=== PATIENT | female | born 1950 | race Caucasian/White ===

== ENCOUNTER 2020-12-27 15:04 | Emergency (ER) | payer OTHER, MEDICARE ==
[~2020-12-27] VITALS: Ht 182.9 cm; Wt 181.0 kg
[~2020-12-27 15:04] MED LIST: ALDACTONE25 MG PO; AZITHROMYCIN250 MG PO; COUMADIN5 MG PO; DILTIAZEM 24HR120 M1 PO; DILTIAZEM HCL120 MG PO; ELIQUIS5 MG PO; LASIX20 MG PO; LIPITOR40 MG PO; METFORMIN HCL500 MG PO; POTASSIUM CHLO10 MEQ PO; PREDNISONE20 MG PO; PROAIR HFA8.5 GM INH; TOPROL XL50 MG PO; ZESTRIL40 MG PO
== END 2020-12-27 17:54 | disposition home or self-care (01) ==
LOC: ED 15:04
DX: M25.551 Pain in right hip (principal); I95.89 Other hypotension; E66.9 Obesity, unspecified; E78.00 Pure hypercholesterolemia, unspecified; I11.0 Hypertensive heart disease with heart failure; I50.9 Heart failure, unspecified; I48.91 Unspecified atrial fibrillation; Z87.891 Personal history of nicotine dependence; Z88.7 Allergy status to serum and vaccine; Z79.899 Other long term (current) drug therapy; W01.0XXA Fall on same level from slipping, tripping and stumbling without subsequent striking against object, initial encounter
CPT/HCPCS: 73502; 99283-25

== ENCOUNTER 2020-12-29 11:05 | Emergency (ER) | payer MEDICARE, OTHER ==
[~2020-12-29] VITALS: Ht 182.9 cm; Wt 181.0 kg
--- OUTSIDE RECORDS SUMMARY | 2020-12-29 11:12 | XMS ---
PreManage Notification: MARILEE WELCH Security Credit Assessment Analyst Events No recent Security Events currently on file CRITERIA MET - [facility] - 2 Visits in 30 Days CARE PROVIDERS There are no care providers on record at this time. Leigha has no Care Guidelines for this patient. [facility] (12 MO.) [facility] NOTE: Visits indicate total known visits. [place] [facility] (12 MO.) [facility] COMPLAINT: - FALL 12/27/2020 15:05 [facility] [place] TYPE: Emergency COMPLAINT: - GLF INPATIENT VISIT TRACKING (12 MO.) No inpatient visits to display in this time frame [email or web address]
--- NOTE | 2020-12-30 10:50 | OR ---
[facility] [address], [place] [address] Signed DATE OF OPERATION: 12/29/2020 SURGEON: Osito Manzano MD PREOPERATIVE DIAGNOSES: 1. Hypotension, need for central venous access (sepsis). 2. Acute renal failure. 3. Morbid obesity (BMI greater than 54.1). POSTOPERATIVE DIAGNOSES: 1. Hypotension, need for central venous access (sepsis). 2. Acute renal failure. 3. Morbid obesity (BMI greater than 54.1). PROCEDURE: Ultrasound-guided right internal jugular central venous catheter placement (Arrow blue tip triple-lumen catheter). ANESTHESIA: Local 1% lidocaine. INDICATION: A 70-year-old morbidly obese white woman in the Trendelenburg position with systolic pressure is 72, request for central venous catheterization anticipating additional interventions. The risks of bleeding, infection, pneumothorax, failure to provide catheterization, and so forth were all reviewed. She understands and wished to proceed. FINDINGS: Additional attempts showed acces without ultrasound guidance were unsuccessful. On that basis, a SonQBE ultrasound device was used to more fully locate the right internal jugular vein, which allowed for access showing dark nonpulsatile blood. The catheter was placed without problem and shows good function at conclusion of the procedure. Chest x-ray is pending. DESCRIPTION OF PROCEDURE: In the supine position in the emergency room (room #10), the patient's face was directed to the left and secured with tape. Arms were at the side. The right neck was prepared with a chlorhexidine solution and draped sterilely. A 1% lidocaine injected over the left sternocleidomastoid muscle. Given her plethoric nature and the short neck, typical landmarks were somewhat lacking. Access through the right sternocleidomastoid muscle Electronically Signed By: OSITO MANZANO MD 12/30/20 1050 PATIENT NAME: MARILEE WELCH OPERATIVE REPORT DATE OF : 54 REPORT #: [id number] PHYSICIAN: OSITO MANZANO MD PCP: HAZEL LYNCH MD REPORT IS CONFIDENTIAL AND NOT TO BE RELEASED WITHOUT AUTHORIZATION [facility] [address], [place] [address] Signed did not reveal reliable withdrawal of dark blood, although there was one occasion when that was noted. It became clear, given her plethoric neck and so forth ultrasonographic assistance would be beneficial. A SonoSite device with sterile sleeve was applied to the neck, identifying well the right internal jugular vein and posterior to at the right carotid artery. I was impressed how far medial these structures were in her neck compared to normal. In any case, additional re-preparation was undertaken. A 1% lidocaine injected over the intended puncture site. Under direct visualization, needle was passed into the right internal jugular vein. Aspiration showed dark nonpulsatile blood. A flexible J-wire was passed down the needle and needle was removed. The site was incised with an #11 blade and dilated with an enclosed blue dilator and previously inspected and irrigated Arrow blue tip triple-lumen catheter was passed over the wire without problem. The catheter was withdrawn a few cm, given its usual length. A white collar was applied to the site and secured to the skin with nylon suture in 2 separate areas. An anti-infective disk was applied as was a SorbaView dressing. Aspiration on the port site through the plate showed good function with easy aspiration of dark nonpulsatile blood and easy flushing. Chest x-ray is pending. MD KATHERINE Davenport/MALATHIL /[id number] cc: MD Hazel COLON MD Lohith Veerappa Reddy, MD Copies: BRISSA ESTRADA MD ~ Electronically Signed By: OSITO MANZANO MD 12/30/20 1050 PATIENT NAME: MARILEE WELCH OPERATIVE REPORT DATE OF : 54 REPORT #: [id number] PHYSICIAN: OSITO MANZANO MD PCP: HAZEL LYNCH MD REPORT IS CONFIDENTIAL AND NOT TO BE RELEASED WITHOUT AUTHORIZATION
--- NOTE | 2020-12-30 15:00 | EKG ---
[facility] [address] [facility] [place], [place] [address] Signed Low voltage QRS Septal infarct , age undetermined Abnormal ECG No previous ECGs available Confirmed by BRISSA ESTRADA MD ([id number]) on 12/30/2020 3:00:13 PM Electronically Signed By: BRISSA ESTRADA MD 12/30/20 1500 PATIENT NAME: MARILEE WELCH Electrocardiogram DATE OF : 54 PHYSICIAN: BRISSA ESTRADA MD REPORT #: [id number] REPORT IS CONFIDENTIAL AND NOT TO BE RELEASED WITHOUT AUTHORIZATION
--- NOTE | 2021-01-06 12:38 | CONS ---
[facility] [address] [place], [place] [address] Signed DATE OF CONSULTATION: 12/29/2020 TIME: 3:50 p.m. REQUESTING PHYSICIAN: Dr. Patterson. PROBLEM: Morbid obesity (BMI 54.1) with hypotension, sepsis and acute renal failure, needing central venous catheterization. HISTORY OF PRESENT ILLNESS: This extremely obese 70-year-old white woman was brought to the hospital, found to be very hypotensive with a systolic pressure of approximately 70. A peripheral IV was placed and 3 L of crystalloid solution has been infused without much benefit regarding hypotension. She is considered to have sepsis and cefepime was administered intravenously. Her lactic acid level is surprisingly 0.8, though her bicarbonate is 12. The patient has diffuse pain in her legs, her back and elsewhere. She is alert and oriented, however. Given her findings, a central venous catheter has been requested by Dr. Patterson and confirmed or reaffirmed by Dr. Estrada of the hospitalist as pressor agents are likely to be employed in the near future. It is notable that her creatinine is nearly 6 and her potassium is 6.2 with a bicarb of 12. She does not have known chronic renal failure. REVIEW OF SYSTEMS: She denies any chest pain. She does have some back pain and left lateral abdominal wall pain. She says her right ankle is painful as is her left leg. PHYSICAL EXAMINATION: An impressively plethoric white woman lying in Trendelenburg position on the stretcher. She is alert and oriented without sign of tachypnea or diaphoresis. The lower extremities show chronic dermatitis. No evidence of swelling. Her legs bilaterally are cool but not ischemic. She is able to move her toes. She has a thick abdominal wall pannus in the intertriginous areas inferiorly with foul smelling and markedly erythematous, consistent with probable yeast infection. Her neck is very short, but without sign of specific swelling. Neurologic exam shows she is able to move upper and lower extremities and extraocular eye movements are normal. Pupils are equal, round, and reactive to light. ASSESSMENT: Central venous catheter has been recommended for anticipated IV access for fluids as Electronically Signed By: OSITO MANZANO MD 01/06/21 1238 PATIENT NAME: MARILEE WELCH CONSULTATION DATE OF : 54 REPORT #: [id number] PHYSICIAN: OSITO MANZANO MD PCP: MAX LYNCH MD REPORT IS CONFIDENTIAL AND NOT TO BE RELEASED WITHOUT AUTHORIZATION [facility] [address] [place], [place] [address] Signed well as IV antibiotics and so forth. A peripheral IV has been initiated. Lab studies that have returned show a creatinine greater than 1100, which does give one concern that she may have secondary effects of rhabdomyolysis with renal failure. Alternatively, a septic focus with subsequent hypoperfusion could account for this was well. As regard to the central venous catheter, I think it is best to perform this right internal jugular approach as she is anticoagulated with Eliquis by history. I do not know if any coag studies have been done to have concurrent coagulopathy otherwise. The risks of bleeding, infection, pneumothorax, failure to place a catheter, and other unforeseen complications were reviewed with her. She understands and wished to proceed. The consent form has been signed and witnessed by the nurse. Osito Manzano MD JM/MODL /[id number] cc: MD Dr. Leonardo Beaver MD Copies: BRISSA ESTRADA MD ~ Electronically Signed By: OSITO MANZANO MD 01/06/21 1238 PATIENT NAME: REBEKAHMARILEE JIM CONSULTATION DATE OF : 54 REPORT #: [id number] PHYSICIAN: OSITO MNAZANO MD PCP: MAX LYNCH MD REPORT IS CONFIDENTIAL AND NOT TO BE RELEASED WITHOUT AUTHORIZATION
== END 2020-12-29 23:12 | disposition short-term general hospital (02) ==
LOC: ED 11:05
DX: N19 Unspecified kidney failure (principal); E87.5 Hyperkalemia; I95.9 Hypotension, unspecified; M62.82 Rhabdomyolysis; Z20.822 Contact with and (suspected) exposure to COVID-19; E78.00 Pure hypercholesterolemia, unspecified; I11.0 Hypertensive heart disease with heart failure; I50.9 Heart failure, unspecified; I48.91 Unspecified atrial fibrillation; E66.9 Obesity, unspecified; Z87.891 Personal history of nicotine dependence; Z88.7 Allergy status to serum and vaccine; Z79.899 Other long term (current) drug therapy; Z79.84 Long term (current) use of oral hypoglycemic drugs
CPT/HCPCS: 36556; 51702; 70450; 71045; 71250; 72125; 72192; 74176; 80048; 80053; 81001; 82553; 83605; 83880; 85025; 87040; 93005; 93010; 99285-25; C9803; J0692; J1940; J7030; J7070; J7121; U0003

== ENCOUNTER 2021-07-06 07:59 | Day surgery (SDC) | payer MEDICARE, OTHER ==
[~2021-07-06] VITALS: Ht 182.9 cm; Wt 154.8 kg
[2021-07-06] MEDS ORDERED: LASIX40 MG PO (08:29)
[2021-07-06] MEDS ORDERED: K-TAB ER20 MEQ PO (08:30)
[2021-07-06] MEDS ORDERED: PROTONIX40 MG PO (08:30)
[2021-07-06] MEDS ORDERED: MAGNESIUM400 MG PO (08:31)
[2021-07-06] MEDS ORDERED: IRON325 M1 PO (08:31)
--- NOTE | 2021-07-06 10:14 | NUR ---
07/06/21 Dickson4 Yas Tena 0957-PT TO PACU IN SF POSITION. EYES OPEN. PT DROWSY BUT DENIES PAIN NAUSEA AND DIZZINESS. BREATHING EASY AND UNLABORED. SPO2 >95% ON 2 L O2 VIA NC. 1006-PT REQUESTING O2 CANULA REMOVED. SPO2 >95%. O2 TITRATED DOWN TO ROOM AIR. PT AWAKE AND ALERT. PT DENIES PAIN NAUSEA AND DIZZINESS. BREATHING EASY AND [id number]. 1013- PT AWAKE TALKING WITH THE MD AT BEDSIDE. BREATHING EASY AND UNLABORED. SPO2 >90% ON ROOM AIR. PT REQUESTING IV REMOVED AND WANTS TO GO HOME NOW. PT EDUCATED ABOUT THE PACU GOALS AND PACU PLAN OF CARE.
--- NOTE | 2021-07-18 08:32 | OR ---
[facility] [address] [place], [place] [address] Signed DATE OF OPERATION: 07/06/2021 SURGEON: Yonis Guillermo MD PREOPERATIVE DIAGNOSES: 1. Recent sepsis associated with stress ulcers x3. 2. Negative CLOtest. 3. Anemia with hemoglobin 11.0 and mean cell volume 88. POSTOPERATIVE DIAGNOSES: 1. Minimal distal patchy gastritis. 2. Healed duodenal ulcers. PROCEDURES: Esophagogastroduodenoscopy without biopsy. ESTIMATED BLOOD LOSS: None. INDICATIONS: Marilee is a 71-year-old obese diabetic female, who developed sepsis recently with acute kidney injury. She spent 37 days at [facility]. During that time, she developed melena and was found to have three superficial ulcers in the duodenum. Her CLOtest was negative. She is now using Protonix twice a day. She has a long history of atrial fibrillation, requiring Eliquis for anticoagulation. She has been asked to see me for repeat upper endoscopy before restarting the Eliquis. She continues to decline colonoscopies. She said her appetite has gone downhill and she has lost 55 pounds. Nevertheless, she is still quite obese and requires a wheeled walker. She also uses CPAP for obstructive sleep apnea. As a result, she does require monitored anesthesia care. In the office, I gave Marilee and her son, Titi pamphlets on upper endoscopy. We reviewed the nature of the test. There is risk including, but not limited to gas bloating, crampy abdominal pain, bleeding, perforation requiring surgery, and missed diagnosis. She had expressed understanding and wished to proceed. PROCEDURE NOTE: Marilee was taken into our endoscopy suite and placed in a supine semi-recumbent position. She was given monitored anesthesia care with propofol per our nurse air lift operator. A bite block was utilized for the case. The adult gastroscope was introduced and advanced under direct visualization of camera into the third portion of the duodenum. The duodenum was unremarkable. The pyloric channel showed three, maybe Electronically Signed By: YONIS GUILLERMO MD 07/10/21 0720 Electronically Signed By: YONIS GUILLERMO MD 07/18/21 0840 PATIENT NAME: MARILEE WELCH OPERATIVE REPORT DATE OF : 54 REPORT #: [id number] PHYSICIAN: YONIS GUILLERMO MD PCP: HAZEL HONG MD REPORT IS CONFIDENTIAL AND NOT TO BE RELEASED WITHOUT AUTHORIZATION [facility] [address] [place], [place] [address] Signed four areas of healed superficial ulcers. The antrum was completely unremarkable. Just a little bit of patchy erythematous changes in the very distal antrum, this was quite unremarkable I am sure compared to when she had when she was sick in January of 2021. No ulcers in the antrum. We did not take any biopsies or repeat the CLOtest. Upon retroflexion of scope, there was no evidence of an obvious hiatal hernia. The scope was then withdrawn up through the GE junction, which was compliant without stricture. There was no gastric or esophageal varices. There was very minimal if any disruption to the Z-line. No Zavala's mucosa. No distal esophagitis. The middle and upper esophagus were unremarkable. After this, the gas was suctioned out, the gastroscope removed. Marilee tolerated the procedure quite well. RECOMMENDATIONS: Marilee can follow up my office as needed. She is welcome to resume her Eliquis today. She could probably decrease the Protonix to once a day. Yonis Guillermo MD ALB/MODL /[id number] cc: Hazel Hong MD Patient Chart Yonis Guillermo MD Copies: YONIS GUILLERMO MD ~ Electronically Signed By: YONIS GUILLERMO MD 07/10/21 0720 Electronically Signed By: YONIS GUILLERMO MD 07/18/21 0840 PATIENT NAME: MARILEE WELCH OPERATIVE REPORT DATE OF : 54 REPORT #: [id number] PHYSICIAN: YONIS GUILLERMO MD PCP: HAZEL HONG MD REPORT IS CONFIDENTIAL AND NOT TO BE RELEASED WITHOUT AUTHORIZATION
== END 2021-07-06 10:30 | disposition home or self-care (01) ==
LOC: DS 07:59 → OPS 07:59 → DS 10:15 → OPS 10:15
PROVIDERS: ATTEND Colon & Rectal Surgery
PROC: 0DJ08ZZ Inspection of Upper Intestinal Tract, Via Natural or Artificial Opening Endoscopic (ICD-10-PCS; principal; 2021-07-06 09:15)
DX: K29.70 Gastritis, unspecified, without bleeding (principal); D50.9 Iron deficiency anemia, unspecified; I48.91 Unspecified atrial fibrillation; A41.9 Sepsis, unspecified organism; E66.01 Morbid (severe) obesity due to excess calories; I50.22 Chronic systolic (congestive) heart failure; K76.0 Fatty (change of) liver, not elsewhere classified; G47.33 Obstructive sleep apnea (adult) (pediatric); Z87.891 Personal history of nicotine dependence; Z68.42 Body mass index [BMI] 45.0-49.9, adult; Z79.01 Long term (current) use of anticoagulants
CPT/HCPCS: 00731; J2001; J2704; J7121

== ENCOUNTER 2022-09-12 08:48 | Emergency (ER) | payer MEDICARE, OTHER ==
[~2022-09-12] VITALS: Ht 182.9 cm; Wt 156.9 kg
--- OUTSIDE RECORDS SUMMARY | ~2022-09-12 | XMS | Continuity of Care Document ---
Demographics + + + | Address | [address] | | | [place] [address] | + + + | Preferred Language | Unknown | + + + | Marital Status | Polygamous | + + + | Episcopalian Affiliation | Unknown | + + + | Race | White | + + + | Ethnic Group | Unknown | + + + Author + + + | Author | [place] | + + + | Organization | [place] | + + + | Address | [address] | | | [place] [address] | + + + | Phone | | + + + Care Team Providers + + + + | Care Entry Level Management Name | Role | Phone | + + + + Unavailable | Unavailable | + + + + Allergies No information. Encounters No information. Functional Status No information. Immunizations No information. Medications No information. Problems + + + + | date | description | facility | + + + + | 2020-12-30 01:47:20 | Acute kidney failure, | [facility] | | | unspecified | [facility] | + + + + Procedures No information. Results/Labs No information. Social History No information. Vital Signs No information."
--- OUTSIDE RECORDS SUMMARY | ~2022-09-12 | XMS | Continuity of Care Document ---
Demographics + + + | Address | [address] | | | [place] [address] | + + + | Preferred Language | Unknown | + + + | Marital Status | Polygamous | + + + | Samaritan Affiliation | Unknown | + + + | Race | White | + + + | Ethnic Group | Unknown | + + + Author + + + | Author | [facility] | + + + | Organization | [facility] | + + + | Address | [address] | | | [place] [address] | + + + | Phone | | + + + Care Team Providers + + + + | Care Poultry Barn Manager Name | Role | Phone | + [...]
[~2022-09-12 08:48] MED LIST changes: +IRON325 M1 PO; +K-TAB ER20 MEQ PO; +LASIX40 MG PO; +MAGNESIUM400 MG PO; +PROTONIX40 MG PO
[2022-09-12] MEDS ORDERED: ELIQUIS5 MG PO (09:12)
[2022-09-12 10:15] VITALS: BP 139/76
== END 2022-09-12 10:15 | disposition home or self-care (01) ==
LOC: ED 08:48
DX: S20.212A Contusion of left front wall of thorax, initial encounter (principal); S09.90XA Unspecified injury of head, initial encounter; I11.0 Hypertensive heart disease with heart failure; I50.9 Heart failure, unspecified; E78.00 Pure hypercholesterolemia, unspecified; I48.91 Unspecified atrial fibrillation; Z88.7 Allergy status to serum and vaccine; Z79.84 Long term (current) use of oral hypoglycemic drugs; Z79.01 Long term (current) use of anticoagulants; Z79.899 Other long term (current) drug therapy; Z87.891 Personal history of nicotine dependence; W18.30XA Fall on same level, unspecified, initial encounter
CPT/HCPCS: 36415; 70450; 71045; 80053; 85025; 96374; 96375; 99284-25; A9270; G0480; J1170; J2060

== ENCOUNTER 2023-01-18 16:20 | Inpatient (IN) | payer MEDICARE, OTHER ==
[~2023-01-18] VITALS: Ht 182.9 cm; Wt 141.2 kg
[~2023-01-18 16:20] MED LIST changes: +FERROUS GLUCON324 M1 PO; -IRON325 M1 PO
[2023-01-18 20:50] LABS: BASOPHILS 0.4 % (0-2); EOSINOPHILS 0.2 % (0-6); HEMATOCRIT 42.2 % (35.0-50.0); HEMOGLOBIN 13.4 g/dL (12.0-18.0); MCH 25.5 (27-36); MCHC 31.8 g/dl (30-36); MCV 80.4 fl (81-99); MONOCYTES 4.7 % (0-12); NEUTROPHILS 91.7 % (39-80); PLATELET COUNT 495 K/uL (140-440); RBC 5.24 M/ul (4.3-5.7); RDW 16.8 (10.5-15.0)
[2023-01-18 21:08] LABS: ALBUMIN 3.6 g/dL (3.4-5.0); ALBUMIN/GLOBULIN RATIO 0.71 (1.1-2.4); ANION GAP 22.9 (7-21); BILIRUBIN, TOTAL 0.6 ng/dL (0.2-1.0); BUN/CREATININE RATIO 18.18 (6.0-28.6); CALCIUM 9.9 mg/dL (8.5-10.1); CREATININE, SERUM 1.54 mg/dL (0.55-1.02); POTASSIUM 4.9 mmol/L (3.5-5.1); PROTEIN, TOTAL 8.7 g/dL (6.4-8.2)
--- NOTE | 2023-01-18 23:00 | NUR ---
pt ARRIVED TO FLOOR VIA STRETCHER. pt TRANSFERED TO MED/SURG BED VIA SLIDE SHEET WITH 4PA. REPORT RECIEVED FROM ER NURSE. PUREWICK PUT IN PLACE. ASSESSMENT AND VITAL SIGNS AND ADMISSION DONE. TELE #[address] CALL LIGHT WITHIN REACH. NO OTHER NEEDS AT THIS TIME.
[2023-01-18 23:06] VITALS: BP 112/74
--- NOTE | 2023-01-19 00:30 | NUR ---
pt HAD ELAINE PATEL RN AND JONAH CHATTERJEE IN TO HELP CLEAN UP pt. NEW PURE WICK PLACED. CALL LIGHT WITHIN REACH.
[2023-01-19 02:20] VITALS: BP 110/71
--- NOTE | 2023-01-19 03:11 | NUR ---
pt HAD BM. STOOL SAMPLE COLLECTED AND SENT TO LAB. SUSPECTED CDIFF. AMANDA SHIN AND JONAH CHATTERJEE IN TO HELP pt. pt CRYING OUT IN PAIN. PRN PAIN MEDICATION ADMINISTERED. CALL LIGHT WITHIN REACH.
--- NOTE | 2023-01-19 04:11 | NUR ---
PATIENT RESTING WITH EYES CLOSED. HR 93. CALL LIGHT WITHIN REACH. NO OTHER NEEDS AT THIS TIME.
[2023-01-19 05:21] LABS: BASOPHILS 0.6 % (0-2); EOSINOPHILS 0.1 % (0-6); HEMATOCRIT 40.2 % (35.0-50.0); HEMOGLOBIN 12.9 g/dL (12.0-18.0); LYMPHOCYTES 8.2 % (24-44); MCH 25.9 (27-36); MCV 80.9 fl (81-99); MONOCYTES 6.5 % (0-12); NEUTROPHILS 84.6 % (39-80); PLATELET COUNT 472 K/uL (140-440); RBC 4.97 M/ul (4.3-5.7); RDW 17.1 (10.5-15.0)
[2023-01-19 05:26] VITALS: BP 107/91
[2023-01-19 05:45] LABS: ALBUMIN 3.2 g/dL (3.4-5.0); ALBUMIN/GLOBULIN RATIO 0.62 (1.1-2.4); ANION GAP 19.1 (7-21); BILIRUBIN, TOTAL 0.4 ng/dL (0.2-1.0); BUN/CREATININE RATIO 20.75 (6.0-28.6); CALCIUM 9.7 mg/dL (8.5-10.1); CREATININE, SERUM 1.59 mg/dL (0.55-1.02); POTASSIUM 5.1 mmol/L (3.5-5.1); PROTEIN, TOTAL 8.4 g/dL (6.4-8.2)
--- NOTE | 2023-01-19 06:00 | NUR ---
PATIENT IN BED RESTIING. pt ON HER PHONE. pt DENIES ANY PAIN. CALL LIGHT WITHIN REACH.
--- NOTE | 2023-01-19 06:02 | EKG ---
[facility] [address] [facility] [place] [address] Signed Atrial fibrillation with rapid ventricular response with premature ventricular or aberrantly conducted complexes Septal infarct (cited on or before 29-DEC-2020) Abnormal ECG When compared with ECG of 29-DEC-2020 13:42, pvc now present Confirmed by MALINI STRAUSS MD ([id number]) on 01/19/2023 6:02:33 AM Electronically Signed By: MALINI STRAUSS 01/19/23 0602 PATIENT NAME: CINDY WELCHN JIM Electrocardiogram DATE OF : 54 PHYSICIAN: MALINI STRAUSS REPORT #: [id number] REPORT IS CONFIDENTIAL AND NOT TO BE RELEASED WITHOUT AUTHORIZATION
--- NOTE | 2023-01-19 06:28 | NUR ---
pt UP MOST OF THE NIGHT. 2 PA, INCONTINENT OF BOWEL AND URINE. PRN PAIN MEDICATION ADMINISTERED. PURE WICK IN PLACE. LOOSE STOOL, SAMPLE SENT FOR CDIFF. CDIFF PERCAUSIONS. CPOX. TELE #3, HR [phone].
[2023-01-19] MEDS ORDERED: METOPROLOL SUC100 MG PO (07:14)
[2023-01-19] MEDS ORDERED: POTASSIUM CHLO20 ME1 PO (07:15)
[2023-01-19] MEDS ORDERED: PANTOPRAZOLE SO40 MG PO (07:15)
[2023-01-19] MEDS ORDERED: FUROSEMIDE20 MG PO (07:16)
[2023-01-19] MEDS ORDERED: TRULICITY3 MG/0.5 M SUB-Q (07:18)
[2023-01-19] MEDS ORDERED: ATORVASTATIN CA20 MG PO (07:19)
[2023-01-19] MEDS ORDERED: VENTOLIN HFA18 GM INH (07:21)
--- NOTE | 2023-01-19 07:47 | NUR ---
RECIEVED REPORT FROM NURSE. PT IS CURRENTLY AWAKE AND COMPLAINING OF PAIN AND NEEDING ASSISTANCE WITH GETTING UP IN BED. PT IS REPOSITIONED. GIVEN ICE WATER AND CALL LIGHT IS WITHIN REACH.
--- NOTE | 2023-01-19 09:06 | NUR ---
PATIENT IS COMOPLAINING OF BACK PAIN. PATIENT REPOSITIONED. PATIENT IS CURRENTLY GETTING CLEANED. DR CAME IN ROOM AND TALKED WITH PATIENT ABOUT PLAN OF CARE. PATIENT HAS MULTIPLE REDDENED AREAS. NYSTATIN POWDER REQUESTED. ASSESSMENT COMPLETE. PURWICK CHANGED. NO OTHER CARES NEEDED OR REQUESTED AT THIS TIME. CALL LIGHT WITHIN REACH
[2023-01-19 09:17] VITALS: BP 137/97
--- NOTE | 2023-01-19 11:00 | NUR ---
CAME IN TO REPOSITION PT. SHE IS NOTY COMPLAINING OF ANY BACK PAIN AT THE MOMENT. NYSTATIN POWDER APPLIED. NEEDED ITEMS AT BEDSIDE. NO OTHER CARES NEEDED OR REQUESTED AT THIS TIME. CALL LIGHT WITHIN REACH
--- NOTE | 2023-01-19 12:05 | NUR ---
PT REPOSITIONED UPRIGHT IN BED FOR NOON MEAL. VISITOR IS PRESENT. PT HAS NO FURTHER REQUESTS
[2023-01-19 12:49] VITALS: BP 128/80
--- NOTE | 2023-01-19 12:51 | NUR ---
PT EATS VERY LITTLE OF NOON MEAL REFUSES OFFER OF ENSURE OR OTHER ITEMS. P/T IN TO WORK WITH PT. SHE IS ABLE TO STAND FOR A VERY SHORT TIME X2 C/O PAIN AND THEN ASSISTED BACK TO BED. NEW PUREWIK PLACED ALONG WITH UNDERGARMENT CHANGE AND ROMI CARE
--- NOTE | 2023-01-19 13:59 | NUR ---
ASSISTED PT TO MOVE TO RESTING ON HER OTHER SIDE. PUREWIK IS IN PLACE CALL LIGHT AND NEEDED ITEMS IN REACH. PT DENIES REQUESTS
--- NOTE | 2023-01-19 15:23 | NUR ---
went to check on pt and pt is currently sleeping in room. call llight within reach
[2023-01-19 17:04] VITALS: BP 112/76
--- NOTE | 2023-01-19 17:25 | NUR ---
pt has had 150 mls of concentrated urine all day. pt was gven lasix earlier and no change in bladder . bladder scanned and only 4mls was present.
--- NOTE | 2023-01-19 17:30 | NUR ---
called dr vega and explained that patient has 150 ml of concentrated urine all day and has also recieved lasix with no results. i also bladderscanned and only 4 mls was present. asked about intake and i explained that she has refused to drink even when encouraged and offered choices like ensure. asked if she was getting anymore lasix today and i told him no. said ok thank you.
--- NOTE | 2023-01-19 18:10 | NUR ---
ASSISTED PT TO TURN OVER TO OTHER SIDE AGREES SHE IS COMFORTABLE. HAS REFUSED EVENING MEAL EXCEPT FOR A FEW BITES OF FRUIT. ENSURE OFFERED WELL. PT RESTING EYES CLOSED AT THIS TIME
[2023-01-19 20:45] VITALS: BP 103/82
--- NOTE | 2023-01-19 21:33 | NUR ---
Pt irritable mood, alert and oriented. on room air, Was incontinent of urine, pure wick in place. powder to under breast/under pannus red areas. was incontinent of small bm, skin care, cleansed. SL RAC patent. repositioned in bed, Vanita lift and 3people assist. procedure explained. CBG WNL, no ss insulin needed. took meds w/o problems. Medicated with Percocet per c/o low back pain. hob elevated. cooperative with assessments. continues on contact enteric precautions until cdiff lab results
[2023-01-20 02:24] VITALS: BP 127/75
--- NOTE | 2023-01-20 02:37 | NUR ---
Awake, watchng tv, calm, cooperative , pleasant, tele#[address] SVT w SVPB's, denies CP or SOB. SL patent RAC, redness under breast/pannus improving. tolerating liquids well. no c/o pain . Pure wick in place, draining light colored tea like urine.
--- NOTE | 2023-01-20 04:20 | NUR ---
Awake, watchng tv, no c/o back pain. tele#[address], afib rhythm at this time, denies CP or sob, on room air. Pure wick in place
[2023-01-20 05:44] LABS: BASOPHILS 0.3 % (0-2); EOSINOPHILS 1.3 % (0-6); HEMATOCRIT 39.2 % (35.0-50.0); HEMOGLOBIN 12.4 g/dL (12.0-18.0); MCH 25.7 (27-36); MCHC 31.8 g/dl (30-36); MCV 80.7 fl (81-99); MONOCYTES 8.7 % (0-12); NEUTROPHILS 77.7 % (39-80); PLATELET COUNT 417 K/uL (140-440); RBC 4.85 M/ul (4.3-5.7); RDW 17.2 (10.5-15.0)
[2023-01-20 05:46] VITALS: BP 116/58
--- NOTE | 2023-01-20 05:46 | EKG ---
[facility] [address] [facility] [place] [address] Signed Atrial fibrillation with rapid ventricular response Possible Inferior infarct (cited on or before 29-DEC-2020) ST \T\ T wave abnormality, consider lateral ischemia Abnormal ECG When compared with ECG of 18-JAN-2023 20:04, Criteria for Septal infarct are no longer present T wave inversion now evident in Lateral leads Confirmed by MALINI STRAUSS MD ([id number]) on 01/20/2023 5:46:27 AM Electronically Signed By: MALINI STRAUSS 01/20/23 0546 PATIENT NAME: MARILEE WELCH Electrocardiogram DATE OF : 54 PHYSICIAN: MALINI STRAUSS REPORT #: [id number] REPORT IS CONFIDENTIAL AND NOT TO BE RELEASED WITHOUT AUTHORIZATION
[2023-01-20 06:05] LABS: ANION GAP 15.7 (7-21); BUN/CREATININE RATIO 33.03 (6.0-28.6); CALCIUM 9.4 mg/dL (8.5-10.1); CREATININE, SERUM 1.12 mg/dL (0.55-1.02); POTASSIUM 4.7 mmol/L (3.5-5.1)
--- NOTE | 2023-01-20 06:38 | NUR ---
Pt has been awake off and on this shift, repositioned multiple times, gabby lift used. was medicated with percocet x1 per back pain, effective. Pure wick in place, draining light tea colored urine. tolerating liquids well, no c/o emesis. Improved redness under breast and pannus. Repositioned at this time to sitting position. was very irriable at begining of shift but redirectable. calmer at this time. Pt has a RAC SL that was patent at begining of shift and now is missing a cap, tubing was capped earlier and clamped. Pt denies messing with it. will remove and try to restart. Pt instructed of reasons why, stated understanding
--- NOTE | 2023-01-20 07:33 | NUR ---
recieved shift report from nurse. pt is currently awake laying in bed watching tv. pt requests for a toothbrush and toothepaste for oral care. pt states pain is tolerable. no other cares needed at this time. call light within reach
--- NOTE | 2023-01-20 08:23 | NUR ---
UR NOTE [facility] GENERAL CRITERIA: OBSERVATION CARE (ISC) 01/18/23 MET OBSERVATION CARE ADMISSION CRITERIA
--- NOTE | 2023-01-20 08:46 | NUR ---
PT ASSISTED TO TURN TO OTHER SIDE AND REPOSITION IN BED. FRESH H20 TO BEDSIDE CALL LIGHT AND NEEDED ITEMS IN REACH.
--- NOTE | 2023-01-20 09:15 | NUR ---
Spoke with Gerda, she currently lives with her boyfriend and son. States she was doing well until 1 week ago when she hurt her back. Became overly painful on the weekend and came to the ER. She refuses placement and would like to have HH PT/OT. She states she spend close to a month in [facility] recently for covid. Pt uses [employer] for food stamps and [employer] to assist with utilities. Pt has multiple piece of DME and denies need for further.Boyfriend and son complete all sample tester, cooking, cleaning, shopping, and driving. Pt feels she is capable of walking. She will work with PT today to see what her level of activity is. Pt plans on dc to home when cleared medically.
--- NOTE | 2023-01-20 09:19 | NUR ---
PT IS CURRENTLY IN BED REPOSITIONED TO SIDE. ASSESSMENT COMPLETE. DESENEX APPLIED TO REDDENED AREAS. CASE MANAGEMENT CAME AND DISCUSSED PLAN WITH PATIENT. PAIN MEDS GIVEN DUE TO PT REQUEST DUE TO BACK PAIN. NO OTHER CARES NEEDED OR REQUESTED AT THIS TIME. CALL LIGHT WITHIN REACH
--- NOTE | 2023-01-20 09:29 | NUR ---
P/T IN TO WORK PT.
[2023-01-20] MEDS ORDERED: B-121000 MCG PO (09:35)
--- NOTE | 2023-01-20 09:47 | NUR ---
ASSISTED P/T WITH STANDING PT 2X, SHE'S IMPROVED OVER YESTERDAY, WAS ABLE TO TAKE A COUPLE OF STEPS. REDDENED AREA ON BOTTOM ASSESSED, WASHED, AND BARRIER APPLIED. APPEARS RASH NOT SHEAR OR PRESSURE AREA. BEDDING WAS ADJUSTED AND AND FRESHENED UP WHILE PT STOOD. RETURNS TO RESTING IN BED ASSISTED TO GET COMFORTABLE. NEW PUREWIK PLACED
--- NOTE | 2023-01-20 10:50 | NUR ---
PT REQUESTED REPOSITION CHANGE. PT REPOSITIONED
[2023-01-20 11:18] VITALS: BP 126/72
--- NOTE | 2023-01-20 11:42 | NUR ---
NOON MEAL SERVED PT STATES SHE DOESN'T CARE FOR THE FOOD. OTHER ITEMS OFFERED, PT DECLINES. 2 MILK PROVIDED PER REQUEST. CALL LIGHT IN REACH PT DENIES OTHER NEEDS
--- NOTE | 2023-01-20 12:39 | NUR ---
pt is currently laying in bed and visiting with her son no cares needed or requested at this time call light within reach
--- NOTE | 2023-01-20 14:16 | NUR ---
patient in bed laying down on her phone. when asked if she needed anything pt said no when asked about pain pt states she has no pain. call light within reach
[2023-01-20 15:06] VITALS: BP 141/87
--- NOTE | 2023-01-20 16:16 | NUR ---
PT CALLS C/O BACK PAIN. VICODIN X2 ADMINISTERED, DAVID USED TO REPOSITION UP IN BED. PT AGREES SHE IS COMFORTABLE. CALL LIGHT IN HAND FRESH H20 TO BEDSIDE.
--- NOTE | 2023-01-20 17:00 | NUR ---
pt is currently talking with case management about renting a hospital bed.
[2023-01-20 17:11] LABS: C. DIFF TOXIN B GENE TCDB,PCR Not Detected (())
[2023-01-20 17:43] VITALS: BP 130/84
--- NOTE | 2023-01-20 19:30 | NUR ---
pt repositioned to L side. using gabby and 2-3 people assist. mottled area at toes noted. cool to touch. warm blanket gien. "they turn that way when quentin cold". same situation was present on admission and after warming LE with warm blankets her feet were pink, warm, able to feel touch perfectly during assessment.
[2023-01-20 20:28] VITALS: BP 128/89
--- NOTE | 2023-01-20 20:51 | NUR ---
Pt semiirrtable mood but redirectable. Cooperative after few cues for assessment. On room air, lungs clear, dim at bases. SL R hand patent. pt wants it out."[place] going home tomorroew, I do not need it". pt instructed on reasoning for contiuing the have an IV site until right before discharge time. "oh, ok, but I still would like to take it off", teaching done several times, semi receptive. Large abd, redness underneath breast and L pannus improving. area cleansed,dried and fresh Desenex powder applied. Turned and repositioned with her help in bed. Medicated with Percoet per c/o 3/10 Low back pain and L leg pain. mottled are down to toenails. warm blanket changed and fresh one given. Purewick in place. urine light tea colored. CBG 113, no coverage. needed. restless in bed. Rails up per safety. hob elevated.
--- NOTE | 2023-01-20 21:10 | NUR ---
CT MANAGER AND THIS RN INTO ROOM, PT COMPLAINED OF "LUMP" IN BED. FRESH DAVID SHEET, DRAW SHEET, WHITE CHUX, BRIEF, AND PUREWICK CHANGED. TOLERATE GOOD WITH EXCEPTION OF PAIN COMPLAINTS WITH CERTAIN MOVEMENTS. CT MANAGER/RN PULLED PT UP, PILLOWS SUPPORTS, HOB ELEVATED TO COMFORT, COVERS PER PT CHOICE. CALL LIGHT WITHIN REACH, ENCOURAGED TO USE.
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
--- NOTE | 2023-01-21 00:14 | NUR ---
Awake, playing on her computer. Denies c/o back pain, has been repositioning self in bed. alfonso was disconnected from tubing and laying on her L side. "I do not know how it came off". replaced. draining light tea colored urine. warm blanket to feet. calm, cooperative, Rails up x3
--- NOTE | 2023-01-21 02:21 | NUR ---
pt moving in bed, has been repositioned several times. pulled IV SL off, site intact. tip intact. took purewick off, laying on the table. gown off. Clean gown given. will leave pure wick off. attends in place. moaning and groaning, c/o back pain. Medicated with 2 Percocet. Irritable mood. not very cooperative with turning. reassured. calmed down. Coop with second assessment
[2023-01-21 05:46] LABS: BASOPHILS 0.4 % (0-2); EOSINOPHILS 0.3 % (0-6); HEMATOCRIT 38.5 % (35.0-50.0); LYMPHOCYTES 15.2 % (24-44); MCH 25.4 (27-36); MCHC 31.2 g/dl (30-36); MCV 81.3 fl (81-99); MONOCYTES 10.8 % (0-12); NEUTROPHILS 73.3 % (39-80); PLATELET COUNT 435 K/uL (140-440); RBC 4.73 M/ul (4.3-5.7); RDW 17.3 (10.5-15.0)
--- NOTE | 2023-01-21 05:53 | NUR ---
On room air, restless, irritable affect. easily redirectable. Has been medicated with Percocet X2 c/o lower back pain, effective. Alert and oriented. Pulled SL off, site intact. Redness under breast and pannus healing, . skin care done prior to applying Desenex powder. Esther area red. Was using Pure wick that pt pulled off twice. currently off, using attends, noted to have below parameters UO. Taking bites off food, during am meals. ENcouraged to increase oral fluid intake, "Dont like it" stated. Toes-up-to- ankles mottled-cold to touch skin coloring present at begining of shift. Warm blankets given and pale-pinkish blanchaable skin coloring noted afterwards, "They geet that way when [place] cold pt stated. Has been moving back and forth in bed. Vanita lift used.Pt stated that she does not want to be dc'd until her bed gets delivered, will notify CM. No c/o CP
[2023-01-21 05:56] LABS: ANION GAP 18.9 (7-21); BUN/CREATININE RATIO 36.02 (6.0-28.6); CALCIUM 10.2 mg/dL (8.5-10.1); CREATININE, SERUM 1.36 mg/dL (0.55-1.02); POTASSIUM 4.9 mmol/L (3.5-5.1)
[2023-01-21 06:31] VITALS: BP 143/81
--- NOTE | 2023-01-21 06:46 | NUR ---
Pt awake, incontinent of urine, attends changed, skin care done. Repositioned in bed. tolerated fair, several metal items found under her skin when repositioning. fingernail clipper and set of house keys, returned to her SEN acosta in room at this time too. Calm, quiet. at this time. no further requests for pain meds
--- NOTE | 2023-01-21 06:51 | NUR ---
Dr Healy notified that pt pulled IV site off. new orders to leave sl out
[2023-01-21] MEDS ORDERED: OXAYDO5 MG PO (07:26)
--- NOTE | 2023-01-21 07:40 | NUR ---
BEDSIDE REPORT FROM HS NURSE, ASSISTED PATIENT WITH REPOSITIONING, AND GETTING WRINKLES STRAIGHTENED OUT IN BED. PATIENT APPEARS ALERT TO PERSON AND PLACE. CALL LIGHT WITHIN REACH.
--- NOTE | 2023-01-21 07:40 | NUR ---
Spoke with Dr. Healy and he is completing dc summary with note showing pt is in need of a hospital bed due to her pain. Rx completed. I called [facility] as pt had requested and they are currently out of beds. I called [facility] and they will be able to deliver a bed this afternoon. Let them know I will be faxing orders in the next 15 minutes. I am requesting the bed as soon as possible as pt would like to dc. She had ordered a bed on line, bed did not arrive yesterday.
[2023-01-21] MEDS ORDERED: CALCITONIN-SAL3.7 ML NAS (08:00)
[2023-01-21 08:56] VITALS: BP 133/75
--- NOTE | 2023-01-21 11:05 | NUR ---
Checked with [facility], they are processing order at this time. Will let me know when they can send the bed to pts home. Pt updated.
--- NOTE | 2023-01-21 11:20 | NUR ---
Requested by staff to go to pts room. She is refusing to get out of bed, dress, or get in the wc. Arrived in room and pt resting on her side on the bed with a top on only. I asked pt what she is wanting to do. Per staff pt was yelling loudly when they assisted to to try and stand. Pt refused and does not want to move. I gave her the option of SNF if she has a 3 night IP stay. (She has had 1 night at this time), stand up and dress and go home in a wc van, or go home by EMS. (Let her know, medicare may not cover this transport) Pt was able to walk yesterday with PT. Pt states she would like to go home by wc van. Scheduled wc van for 12:30.
--- NOTE | 2023-01-21 11:37 | NUR ---
PATIENT HAD ATTEMPTED TO WORK WITH PHYSICAL THERAPY, YELLING AT STAFF. DOCTOR INTO ROOM AND PATIENT REQUESTED TO BE DISCHARGED. PAPERWORK PRINTED. CONTACTED PATIENT SIGNIFICANT OTHER WHO REPORTED BED WAS NOT READY. VERBALIZED TO SIGNIFICANT OTHER THAT PATIENT TOLD PHYSICIAN THAT SHE WANTED TO LEAVE NOW, EVEN IF THE HOSPITAL BED WAS NOT AVAILABLE. PHARMACY INTO ROOM TO TALK WITH PATIENT. PATIENT THEN CALLED SIGNIFICANT OTHER TO REPORT READY TO BE PICKED UP. CASE MANAGEMENT CALLING TO ARRANGE A WHEELCHAIR VAN TO ASSIST WITH RIDE HOME.
--- NOTE | 2023-01-21 12:17 | NUR ---
Notified by staff, pt is refusing to get up. I returned to the room, pt now stating she will go home by [facility]. Friend Shawn is in the room. Discussed pt should not dc until the bed from [facility] arrives as EMS can place her in the bed. I attempted to discuss with pt plan for using the bathroom if she cannot stand here. Pt states Shawn and son will help her. She wants to go home. Shawn will return home and call me when the hospital bed arrives.
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
--- NOTE | 2023-01-21 13:10 | NUR ---
WC van was cancelled and left. Plan for pt to go home why EMS when hospital bed arrives. Spoke with [facility], bed was authed. They will deliver as soon as they have pick up and delivery driver.
[2023-01-21 13:16] LABS: PH, VENOUS 7.311 (7.31-7.41)
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
--- NOTE | 2023-01-21 14:00 | NUR ---
Called and spoke with Shawn. Updated pt will not dc today. They hospital bed has arrived and is set up. He requests we call him tomorrow and confirm pt will dc by EMS. Pts son then requested to speak with me. He asks we send dc instructions in an envelope for him tomorrow. He also states concern as mom will "play possum" to get what she wants. We discussed pt doesn't qualify for SNF at this time as she would need a 3 night IP stay. He states he is used to making his mom get up and do things she doesn't like to do. He feels he and Shawn will be able to work with her. Will plan EMS ride home tomorrow if she is medically cleared by Dr. Healy.
[2023-01-21 14:16] LABS: BASOPHILS 0.4 % (0-2); EOSINOPHILS 0.1 % (0-6); HEMATOCRIT 40.6 % (35.0-50.0); HEMOGLOBIN 12.6 g/dL (12.0-18.0); LYMPHOCYTES 6.9 % (24-44); MCHC 30.9 g/dl (30-36); MCV 80.9 fl (81-99); MONOCYTES 8.1 % (0-12); NEUTROPHILS 84.5 % (39-80); PLATELET COUNT 454 K/uL (140-440); RBC 5.02 M/ul (4.3-5.7); RDW 17.3 (10.5-15.0)
--- NOTE | 2023-01-21 14:19 | NUR ---
MS HELIO. PT APPEARED TO BE SLEEPING AND DID NOT ROUSE TO MY KNOCK. LEFT GUIDEPOST WITH PRAYER CARD AND CONTACT CARD. PROVIDED PRAYER.
[2023-01-21 14:26] LABS: ALBUMIN 3.4 g/dL (3.4-5.0); ALBUMIN/GLOBULIN RATIO 0.71 (1.1-2.4); ANION GAP 17.3 (7-21); BILIRUBIN, TOTAL 0.4 ng/dL (0.2-1.0); BUN/CREATININE RATIO 30.86 (6.0-28.6); CALCIUM 10.8 mg/dL (8.5-10.1); CREATININE, SERUM 1.62 mg/dL (0.55-1.02); POTASSIUM 5.3 mmol/L (3.5-5.1); PROTEIN, TOTAL 8.2 g/dL (6.4-8.2); TSH, 3RD GENERATION 0.125 uIU/mL (0.358-3.740)
--- NOTE | 2023-01-21 14:30 | NUR ---
ENTERED ROOM PATIENT NAKED AND DIGGING IN VAGINAL AREA, PROVIDED WASH CLOTHS. NO REDNESS TO VAGINAL AREA, APPLIED CREAM AND POWDER, FRESH GOWN AND WASH CLOTHS FOR HANDS AND FACE. REPOSITIONED PATIENT WITH PILLOWS, ENCOURAGED FLUID INTAKE. PATIENT REFUSED WATER, BUT DRANK MILK. PATIENT APPEARS TO SHIFT MOODS, LAUGHS, ANSWERS QUESTIONS THEN FLIPPED THIS NURSE OFF WITH MIDDLE FINGER, LAUGHING MORE.
--- NOTE | 2023-01-21 15:07 | NUR ---
TRIED TO GET PATIENT'S BLOOD PRESSURE SHE WOULDN'T HOLD STILL AND SHE TOOK IT OFF.
[2023-01-21 15:39] LABS: BILIRUBIN, URINE POSITIVE (negative); BLOOD/HGB, URINE NEGATIVE (Negative); KETONE, URINE TRACE (Negative); LEUK ESTERASE, URINE NEGATIVE (negative); NITRITE, URINE NEGATIVE (negative)
[2023-01-21 15:44] LABS: BACTERIA, URINE 1+ /hpf (negative); CASTS, URINE NONE SEEN \\lpf; CRYSTALS, URINE NONE SEEN (0-1+); EPITHELIAL CELLS, URINE SQUAMOUS 1+ /lpf (0-1+); RED BLOOD CELLS, URINE 0-1 /hpf (0-5)
[2023-01-21 15:45] LABS: COLLECTION TYPE, URINE VOID; REFLEX CULTURE, URINE No (No)
--- NOTE | 2023-01-21 16:00 | NUR ---
ASSISTED PATIENT TO REPOSITION IN BED. DR. STRAUSS AWARE LABS ARE BACK. ENCOURAGED PATIENT TO DRINK FLUIDS. CHANGED ATTEND, SATURATED WITH URINE. PATIENT LAUGHING AND STICKING TONGUE OUT AT NURSE. PROVIDED REASSURANCE AND HUMOR WITH, PATIENT MORE COMPLIANT WITH CARE IF LAUGHING.
[2023-01-21 16:05] LABS: AMPHETAMINES, URINE NEGATIVE (NEGATIVE); BARBITURATES, URINE NEGATIVE (NEGATIVE); BENZODIAZEPINE, URINE NEGATIVE (NEGATIVE); BUPRENORPHINE, URINE NEGATIVE (NEGATIVE); CANNABINOID, URINE NEGATIVE (NEGATIVE); COCAINE, URINE NEGATIVE (NEGATIVE); ECSTASY, URINE NEGATIVE (NEGATIVE); FENTANYL, URINE NEGATIVE (NEGATIVE); METHADONE, URINE NEGATIVE (NEGATIVE); OPIATES, URINE POSITIVE (NEGATIVE); OXYCODONE, URINE NEGATIVE (NEGATIVE); PHENCYCLIDINE, URINE NEGATIVE (NEGATIVE)
--- NOTE | 2023-01-21 18:45 | NUR ---
STARTED NEW IV TO 22G R FA, STARTED LR BOLUS. DR. STRAUSS VERBALIZED OKAY TO ADMINISTER 1 TAB OF NORCO PO. REQUESTED TYELENOL AND LIDOCAINE PATCH FOR BACK PAIN, NO ORDER AT THIS TIME. REPOSITIONED PATIENT WITH PILLOWS. WRAPPED IV WITH STRETCH BANDAGE AND PROVIDED EDUCATION. BED ALARM ON.
[2023-01-21 18:51] VITALS: BP 143/85
--- NOTE | 2023-01-21 19:28 | NUR ---
RECEIVED REPORT FROM DAY SHIFT RN. PATIENT IS RESTINGIN BED. PATIENT DENIES ANY NEEDS. CALL LIGHT IN REACH. BED ALARM ON FOR SAFETY. PATIENTS IV INFUSING PER ORDER.
[2023-01-21 20:46] VITALS: BP 103/77
--- NOTE | 2023-01-21 21:18 | NUR ---
PATIENT INCONTINENT OF URINE. PATIENT BECOME COMBATIVE DURING CARE. PATIENT REASSURED SHE IS SAFE. PATIENTS BEDDING CHANGED. ROMI CARE COMPLETED AND NEW ATTEND PUT IN PLACE. PUREWICK IN PLACE. PATIENT REPOSITIONED IN BED. PATIENT APPEARS TO BE CALM NOW. PATIENTS VITALS TAKEN AND RECORDED. PATIENTS INTAKE AND OUTPUT RECORDED. PM MEDS GIVEN PER ORDER. PATIENT RATES PAIN AT A 2/10. POWDER APPLIED TO PATIENTS PANUS AND UNDER BREAST AREA. PATIENTS IV FLUSHED AND SL PER ORDER. PATIENT PROVIDED MILK. PATIENT DENIES ANY FURTHER NEEDS. CALL LIGHT AND BELONGINGS ARE WITHIN REACH.
--- NOTE | 2023-01-21 22:26 | NUR ---
PATIENT IS RESTING IN BED WITH EYES CLOSED, RR 16. CALL LIGHT IN REACH. BED ALARM ON FOR SAFETY.
--- NOTE | 2023-01-21 23:40 | NUR ---
PATIENT CAN BE HEARD HOLLERING OUT. PATIENT REPOSITIONED IN BED. PATIENT RATES PAIN AT A 5/10, PRN PAIN MEDICATION GIVEN PER ORDER. PATIENT DENIES ANY FURTHER NEEDS. CALL LIGHT IN REACH.
--- NOTE | 2023-01-22 01:22 | NUR ---
PATIENT CAN BE HEARD HOLLERING OUT. PATIENT REPOSITIONED IN BED. PATIENTS ATTEND [facility]. PATIENT DENIES ANY FURTHER NEEDS. CALL LIGHT IN REACH.
--- NOTE | 2023-01-22 03:07 | NUR ---
PATIENT CAN BE HEARD AT RN STATION EUNICE "HELP". WHEN THIS RN ENTERED ROOM. PATIENT HAD REPOSITIONED FROM HER RIGHT SIDE TO ALMOST HER LEFT SIDE. PATIENT REPORTS PAIN. PATIENT REPOSITIONED IN BED. PATIENT GIVEN PRN PAIN MEDICATION PER ORDER. PATIENT PROVIDED WITH WARM BLANKET. NO FURTHER NEEDS NOTED. CALL LIGHT IN REACH.
--- NOTE | 2023-01-22 04:25 | NUR ---
PATIENT IS RESTING IN BED WITH EYES CLSOED, RR 16. CALL LIGHT IN REACH.
[2023-01-22 05:50] VITALS: BP 99/53
--- NOTE | 2023-01-22 06:05 | NUR ---
THIS RN AND CONTROL SYSTEMS DEVELOPER ASSISTED LAB WITH LAB DRAW. PATIENT IS INCONTINENT OF URINE. PATIENTS ATTEND CHANGED AND NEW PUREWICK PUT IN PLACE. PATIENT YELLS OUT WITH CARE AND SWINGS AT STAFF. PATIENT DOES NOT HELP WITH REPOSITIONING. PATIENT REPOSITIONED IN BED. PATIENTS VITALS TAKEN AND RECORDED. PATIENT WILL NOT RATE PAIN. PATIENT OFFERED A WARM BLANKET. WHEN THIS RN IS LEAVING ROOM PATIENT STATED "THANK YOU HONEY, I LOVE YOU". PATIENT APPEARS COMFORTABLE. NO FURTHER NEEDS NOTED. CALL LIGHT IN REACH. IV FLUSHED AND SL PER ORDER.
[2023-01-22 06:09] LABS: BASOPHILS 0.4 % (0-2); EOSINOPHILS 0.8 % (0-6); HEMATOCRIT 38.1 % (35.0-50.0); HEMOGLOBIN 12.1 g/dL (12.0-18.0); LYMPHOCYTES 11.7 % (24-44); MCH 25.4 (27-36); MCHC 31.7 g/dl (30-36); MCV 80.3 fl (81-99); MONOCYTES 9.9 % (0-12); NEUTROPHILS 77.2 % (39-80); PLATELET COUNT 425 K/uL (140-440); RBC 4.74 M/ul (4.3-5.7); RDW 17.1 (10.5-15.0)
[2023-01-22 06:21] LABS: BUN/CREATININE RATIO 32.67 (6.0-28.6); CALCIUM 9.9 mg/dL (8.5-10.1); CREATININE, SERUM 1.53 mg/dL (0.55-1.02)
--- NOTE | 2023-01-22 07:15 | NUR ---
REPORT RECEIVED FROM KIP SELLERS. PT LAYING IN BED AND RESPONDS WHEN ADDRESSED. KIP SELLERS ASKS PT ABOUT PAIN AND PT STATES "IT IS FINE." PT CLOSES EYES, RR EVEN AND UNLABORED. NO OTHER NEEDS IDENTIFIED AT THIS TIME. CALL LIGHT IN REACH.
--- NOTE | 2023-01-22 08:30 | NUR ---
Pt discussed in [address] Healy, pt will dc today.
--- NOTE | 2023-01-22 09:00 | NUR ---
Spoke with pt, confirmed she will dc today per EMS at pts request. Pt would also like to have PT on dc. is in agreement. [facility]. Called EMS and they state they will pick pt up in 20-40 minutes. Nonemergent transport sheet compelted.
[2023-01-22 09:05] VITALS: BP 125/72
--- NOTE | 2023-01-22 09:14 | NUR ---
IN TO [employer], SEE MAR. PT TAKES PO MEDICATIONS WITH NO ISSUES. BG RECHECKED AND NOTED TO BE 81. PT REPORTING PAIN 4/10 IN BACK. PRN PAIN MEDICATION ADMINISTERED, SEE MAR. ASSESSMENT COMPLETE. LUNG SOUNDS CLEAR IN RUL AND [place]. DIMINISHED IN RLL AND LLL. BOWEL TONES ACTIVE. SCATTERED BRUISING NOTED TO BILATERAL ARMS AND SHINS. BRUISING NOTED TO MID ABD. REDNESS NOTED TO PANNUS AND BILATERAL BREASTS. DESENEX POWDER APPLIED TO PANNUS AND UNDER BILATERAL BREASTS. SEN VAUGHN AND SEN THOMSON IN TO GET PT DRESSED FOR RIDE HOME. IV REMOVED WNL. NO OTHER NEEDS FROM THIS RN AT THIS TIME.
== END 2023-01-22 09:50 | disposition home health service (06) | DRG 544 ==
LOC: ED 16:20 → MS 16:22
PROVIDERS: Emergency Medicine; Internal Medicine; ADMIT Family Medicine; ATTEND Family Medicine
DX: M48.56XA Collapsed vertebra, not elsewhere classified, lumbar region, initial encounter for fracture (principal); I11.0 Hypertensive heart disease with heart failure; I50.9 Heart failure, unspecified; J44.9 Chronic obstructive pulmonary disease, unspecified; E78.00 Pure hypercholesterolemia, unspecified; Z87.891 Personal history of nicotine dependence; Z88.7 Allergy status to serum and vaccine; Z79.01 Long term (current) use of anticoagulants
CPT/HCPCS: 36415; 72131; 80048; 80053; 80307; 81001; 82803; 84443; 85025; 87493; 93005; 93010; 94762; 96374; 96375; 97163; 97166; 97530; 99285-25; A9270; J1170; J2060; J2270; J7121

== ENCOUNTER 2023-01-25 12:46 | Inpatient (IN) | payer MEDICARE, OTHER ==
[~2023-01-25] VITALS: Ht 182.9 cm; Wt 137.6 kg
[2023-01-25] VITALS (8 sets, daily range): BP systolic 77–104; BP diastolic 49–83
[~2023-01-25 12:46] MED LIST changes: +ATORVASTATIN CA20 MG PO; +B-121000 MCG PO; +CALCITONIN-SAL3.7 ML NAS; +FUROSEMIDE20 MG PO; +METOPROLOL SUC100 MG PO; +OXAYDO5 MG PO; +PANTOPRAZOLE SO40 MG PO; +POTASSIUM CHLO20 ME1 PO; +TRULICITY3 MG/0.5 M SUB-Q; +VENTOLIN HFA18 GM INH
--- OUTSIDE RECORDS SUMMARY | 2023-01-25 12:52 | XMS ---
PreManage Notification: MARILEE WELCH Security Photographic Engineer Events No recent Security Events currently on file CRITERIA MET - [facility] - 2 Visits in 30 Days CARE PROVIDERS There are no care providers on record at this time. Leigha has no Care Guidelines for this patient. Angy VISIT COUNT (12 MO.) 3 [facility]3][place] [facility] TOTAL 3 NOTE: Visits indicate total known visits. [place] (12 MO.) 01/25/2023 12:[address] [facility] [place] TYPE: Emergency COMPLAINT: - BACK PAIN 01/18/2023 16:21 [facility] [place] TYPE: Emergency COMPLAINT: - LOWER BACK PAIN 09/12/2022 08:48 [facility] [place] TYPE: Emergency COMPLAINT: - FALL, HEAD INJURY DIAGNOSES: - Allergy status to serum and vaccine - Contusion of left front wall of thorax, initial encounter - Fall on same level, unspecified, initial encounter - Heart failure, unspecified - Hypertensive heart disease with heart failure - bed bug exterminator (current) use of anticoagulants - correction (current) use of oral hypoglycemic drugs - Other intermodal customer service (current) drug therapy - Personal history of nicotine dependence - Pure hypercholesterolemia, unspecified - Unspecified atrial fibrillation - Unspecified injury of head, initial encounter INPATIENT VISIT TRACKING (12 MO.) 01/20/2023 14:[address] [facility] [place] TYPE: Medical Surgical COMPLAINT: - VERTEBRAL COMPRESSION FX DIAGNOSES: - Allergy status to serum and vaccine - Allergy status to serum and vaccine - Chronic obstructive pulmonary disease, unspecified - Chronic obstructive pulmonary disease, unspecified - Collapsed vertebra, not elsewhere classified, lumbar region, initial encounter for fracture - Collapsed vertebra, not elsewhere classified, lumbar region, initial encounter for fracture - Dorsalgia, unspecified - Heart failure, unspecified - Heart failure, unspecified - Hypertensive heart disease with heart failure - Hypertensive heart disease with heart failure - correction (current) use of anticoagulants - correction (current) use of anticoagulants - Personal history of nicotine dependence - Personal history of nicotine dependence - Pure hypercholesterolemia, unspecified - Pure hypercholesterolemia, unspecified [email or web address]
[2023-01-25 13:46] LABS: BASOPHILS 0.3 % (0-2); EOSINOPHILS 0.2 % (0-6); HEMATOCRIT 37.5 % (35.0-50.0); HEMOGLOBIN 11.9 g/dL (12.0-18.0); LYMPHOCYTES 8.7 % (24-44); MCH 25.7 (27-36); MCHC 31.9 g/dl (30-36); MCV 80.5 fl (81-99); MONOCYTES 9.2 % (0-12); NEUTROPHILS 81.6 % (39-80); PLATELET COUNT 392 K/uL (140-440); RBC 4.65 M/ul (4.3-5.7); RDW 18.1 (10.5-15.0)
[2023-01-25 14:02] LABS: ALBUMIN/GLOBULIN RATIO 0.68 (1.1-2.4); BILIRUBIN, TOTAL 0.6 ng/dL (0.2-1.0); BUN/CREATININE RATIO 26.2 (6.0-28.6); CALCIUM 9.5 mg/dL (8.5-10.1); CREATININE, SERUM 1.45 mg/dL (0.55-1.02); PROTEIN, TOTAL 7.4 g/dL (6.4-8.2)
[2023-01-25 14:27] LABS: BILIRUBIN, URINE POSITIVE (negative); BLOOD/HGB, URINE NEGATIVE (Negative); KETONE, URINE TRACE (Negative); LEUK ESTERASE, URINE NEGATIVE (negative); NITRITE, URINE NEGATIVE (negative); PH, URINE 5.5 (5-7)
--- NOTE | 2023-01-25 16:45 | NUR ---
72 YR FEMALE PATIENT ADMITTED TO ROOM 130 CCU FROM ER VIA STRETCHER WITH DX OF AFIB RVR. PATIENT WAS DISCHARGED FROM [facility] THIS LAST FRIDAY. PATIENT HASN'T BEEN OOB SINCE THEN. WAS SOILED WITH URINE AND STOOL UPON ADMIT TO ER. ER STAFF BATHE PATIENT. UPON RECEIVING REPORT FOR ED, PATIENT IS CONSTANTLY MOANING. WEIGHT ENGINEER GAVE PATIENT A TOTAL OF 1 MG DILADID, THE LAST DOSE BEING JUST BEFORE TRANSFER TO CCU. PATIENT IS ON CARDIZEM GTT AT 15 MG/HR. RECEIVED 20 MG IV IN ER AND STARTED ON DRIP. ADMISSION PROCESS STARTED, HOWEVERE PATIENT NOT NOT COOPERATING WITH FOLLOWING COMMANDS AND NOT ANSWERING QUESTIONS. PURWIK IN PLACE. ATTENDS ON.
--- NOTE | 2023-01-25 20:30 | NUR ---
PT IS LETHARGIC BUT RESPONSIVE. PT DOES NOT COOPERATE WITH NURSING STAFF, SHE WILL OCCASIONALLY FOLLOW COMMANDS IF SHE WISHES TO. PT WILL NOT RESPOND WHEN ASKED IF SHE KNOWS WHERE SHE IS, OR WHAT DAY IT IS. WHEN ASKED IF SHE KNOWS WHY SHE IS HERE SHE WILL SAY "I DONT KNOW" WHEN ASKED IF SHE IS HAVING PAIN AFTER YELLING "OUCH" SHE AGAIN RESPONDS WITH "I DONT KNOW". PT DOES TELL ME HER FULL NAME, HER , WELL HER AGE. PT WILL OCCASIONALLY ANSWER YES OR NO QUESTIONS OR NOT RESPOND AT ALL. PT REMAINS ON A CARDIZEM DRIP, HEART RATE IS WELL CONTROLLED BUT BP IS TRENDING HYPOTENSIVE. CARDIZEM IS TITRATED DOWN. PT ASSESSED. VITALS REVIEWED. PT REPOSITIONED. NEW PIV INSERTED. CALL LIGHT WIHT IN REACH. / BED SIDERAILS IN USE, BED ALARM IS ON. PT REMINDED SEVERAL TIMES TO NOT PULL AT LINES AND DEVICES. RN ATTEMPTED TO EDUCATE PT ON THE SERIOUSNESS OF HER CONDITION AND THE NECCESSATIES OF INTERVENTION, PT DID NOT RESPOND WELL TO EDUCATION.
[2023-01-25 21:50] LABS: ANION GAP 15.8 (7-21); BUN/CREATININE RATIO 22.63 (6.0-28.6); CALCIUM 10.1 mg/dL (8.5-10.1); CREATININE, SERUM 1.9 mg/dL (0.55-1.02)
[2023-01-25 22:01] LABS: POTASSIUM 7.8 mmol/L (3.5-5.1)
[2023-01-25 22:30] LABS: ANION GAP 15.2 (7-21); BUN/CREATININE RATIO 21.07 (6.0-28.6); CALCIUM 10.1 mg/dL (8.5-10.1); CREATININE, SERUM 2.04 mg/dL (0.55-1.02); POTASSIUM 6.2 mmol/L (3.5-5.1)
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
[2023-01-25 22:33] LABS: MAGNESIUM 1.5 mg/dL (1.8-2.4)
--- NOTE | 2023-01-25 22:41 | EKG ---
[facility] [address] [place] [address] Signed Atrial fibrillation with rapid ventricular response Nonspecific T wave abnormality Abnormal ECG When compared with ECG of 19-JAN-2023 06:37, Borderline criteria for Inferior infarct are no longer present ST no longer depressed in Anterior leads T wave inversion no longer evident in Lateral leads Confirmed by Franklyn Mera MD () on 01/25/2023 10:40:51 PM Electronically Signed By: FRANKLYN MERA MD 01/25/23 2241 PATIENT NAME: CINDY WELCHN JIM Electrocardiogram DATE OF : 54 PHYSICIAN: FRANKLYN MERA MD REPORT #: [id number] REPORT IS CONFIDENTIAL AND NOT TO BE RELEASED WITHOUT AUTHORIZATION
[2023-01-26] VITALS (19 sets, daily range): BP systolic 14–140; BP diastolic 32–109
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
--- NOTE | 2023-01-26 02:00 | NUR ---
PT IS RESTING IN BED. PT IS REPOSITIONED. VITAL SIGNS REVIEWED. ALL QUESTIONS AND CONCERNS ADDRESSED. CALL LIGHT WITH IN REACH, BED IS IN LOCKED POSITION, BED ALARM IS SET, 4/4 BEDSIDE RAILS IN USE.
[2023-01-26 02:26] LABS: BUN/CREATININE RATIO 18.56 (6.0-28.6); CALCIUM 10.3 mg/dL (8.5-10.1); CREATININE, SERUM 2.37 mg/dL (0.55-1.02)
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
[2023-01-26 06:17] LABS: BASOPHILS 0.2 % (0-2); EOSINOPHILS 0.5 % (0-6); HEMATOCRIT 37.7 % (35.0-50.0); HEMOGLOBIN 11.6 g/dL (12.0-18.0); LYMPHOCYTES 8.9 % (24-44); MCH 25.4 (27-36); MCHC 30.9 g/dl (30-36); MCV 82.3 fl (81-99); MONOCYTES 11.9 % (0-12); NEUTROPHILS 78.5 % (39-80); PLATELET COUNT 377 K/uL (140-440); RBC 4.58 M/ul (4.3-5.7); RDW 18.4 (10.5-15.0)
[2023-01-26 06:34] LABS: ALBUMIN 2.9 g/dL (3.4-5.0); ALBUMIN/GLOBULIN RATIO 0.66 (1.1-2.4); ANION GAP 13.9 (7-21); BILIRUBIN, TOTAL 0.4 ng/dL (0.2-1.0); BUN/CREATININE RATIO 16.84 (6.0-28.6); CALCIUM 9.9 mg/dL (8.5-10.1); CREATININE, SERUM 2.73 mg/dL (0.55-1.02); MAGNESIUM 2.3 mg/dL (1.8-2.4); PHOSPHORUS, INORGANIC 4.6 mg/dL (2.5-4.9); POTASSIUM 5.9 mmol/L (3.5-5.1); PROTEIN, TOTAL 7.3 g/dL (6.4-8.2)
--- NOTE | 2023-01-26 08:00 | NUR ---
ASSESSMENT DONE. IS SOMULENT AT THIS TIME. MOANS OUT OCC WHEN TOUCHED. EYES OPEN BRIEFLY, THEN TO CLOSED AGAIN. WILL HOLD BREAKFAST UNTIL MORE ALERT. IS CURRENTLY ASPIRATION RISK
--- NOTE | 2023-01-26 10:28 | NUR ---
MED REC COMPLETE
[2023-01-26 13:43] LABS: ANION GAP 13.5 (7-21); BUN/CREATININE RATIO 15.97 (6.0-28.6); CALCIUM 9.5 mg/dL (8.5-10.1); CREATININE, SERUM 3.13 mg/dL (0.55-1.02); POTASSIUM 5.5 mmol/L (3.5-5.1)
--- NOTE | 2023-01-26 17:04 | NUR ---
500 ML IV BOLUS OF NS REPEATED.
--- NOTE | 2023-01-26 18:10 | NUR ---
BOLUS INFUSED. HAS NOT VOIDED ALL DAY. O2 TO OXYMASK.
[2023-01-26 18:33] LABS: ANION GAP 14.6 (7-21); BUN/CREATININE RATIO 14.54 (6.0-28.6); CALCIUM 8.7 mg/dL (8.5-10.1); CREATININE, SERUM 3.3 mg/dL (0.55-1.02); POTASSIUM 4.6 mmol/L (3.5-5.1)
[2023-01-26 20:23] LABS: BASE EXCESS, BLOOD GAS -3.9 mmol/L (-2-2); HCO3, BLOOD GAS 23.6 mmol/L (22-26); O2 SATURATION, BLOOD GAS 91.5 % (95.0-100.0); PCO2, BLOOD GAS 53.5 mmHg (35-45); PH, BLOOD GAS 7.25 (7.35-7.45); PO2, BLOOD GAS 63 mmHg (80-100); TOTAL CO2, BLOOD GAS 25.3
--- NOTE | 2023-01-26 20:45 | NUR ---
PT IS IN BED. PT IS YELLING OUT FOR HELP GETTING OUT OF BED AND GOING HOME. PT IS NOT ORIENTATED TO PLACE, TIME, OR SITUATION. PT OFFERED PAIN MEDICATION WITH HER EVENING MEDS, PT SPIT MEDICATION OUT 3 TIMES AND LASTLY ON THE RN AT BEDSIDE. PROVIDER NOTIFIED OF URINE OUTPUT AFTER CASTELLANOS PLACEMENT, WELL HER REFUSAL TO TAKE PO MEDICATIONS. CT ORDERED AND OBTAINED. ABG OBTAINED BY RT PRIOR TO CT. PT DID RECEIVED ATIVAN X1. PT BACK TO THE UNIT AND BIPAP APPLIED. SITTER WITH THE PATIENT. IV LOPRESSOR ORDERED. IVF ORDERED.
[2023-01-26 22:22] LABS: ANION GAP 13.6 (7-21); BUN/CREATININE RATIO 14.16 (6.0-28.6); CALCIUM 8.9 mg/dL (8.5-10.1); CREATININE, SERUM 3.46 mg/dL (0.55-1.02); POTASSIUM 4.6 mmol/L (3.5-5.1)
--- NOTE | 2023-01-26 22:30 | NUR ---
PT IS REPOSITIONED, ON BIPAP. SITTER NEAR BY. PT DOES OCCASIONALLY WAKE UP AND REACH FOR MASK BUT IS EASILY REDIRECTED. VITAL SIGNS ARE WITH IN NORMAL LIMITS PROVIDER UPDATED ON RECENT LAB VALUES. NEW ORDERS RECIEVED. CALL LIGHT IS WITH IN REACH, BED IS LOWERED AND LOCKED, 4/4 BEDSIDE RAILS IN USE.
[2023-01-27] VITALS (19 sets, daily range): BP systolic 76–121; BP diastolic 36–67
--- NOTE | 2023-01-27 | NUR ---
PT IS RESTING IN BED, PT IS GETTING RESTLESS AND PULLING OFF BIPAP, LINES, TUBES AND DEVICES AND NOT REDIRECTABLE. PROVIDER MADE AWARE, ORDERS RECIEVED, AND MEDICATION GIVEN. PT MOVING ALL EXTREMTIES BUT DOES NOT FOLLOW COMMAND. CURRENT PIV INFILTRATED, PIV REMOVED AND NEW PIV SITE PLACED. PT REPOSITIONED. CALL LIGHT WITH IN REACH, SITTER AT BEDSIDE, SIDE RAILS UP.
--- NOTE | 2023-01-27 01:18 | NUR ---
ATTEMPTED USIV X2 WITHOUT SUCCESS. PT TOLERATED FAIR. PRIMARY RN IN ROOM AT THIS TIME.
--- NOTE | 2023-01-27 02:00 | NUR ---
PT IS RESTING IN BED, PT REPOSITIONED. VITAL SIGNS REVIEWED. CALL LIGHT WITH IN REACH, SITTER AT BEDSIDE.
[2023-01-27 04:19] LABS: BASE EXCESS, BLOOD GAS -4.2 mmol/L (-2-2); HCO3, BLOOD GAS 23.7 mmol/L (22-26); PCO2, BLOOD GAS 55.8 mmHg (35-45); PH, BLOOD GAS 7.24 (7.35-7.45); PO2, BLOOD GAS 425 mmHg (80-100); TOTAL CO2, BLOOD GAS 25.5
[2023-01-27 04:20] LABS: O2 SATURATION, BLOOD GAS > 100.0 % (95.0-100.0)
--- NOTE | 2023-01-27 04:30 | NUR ---
PT IS REACHING TO PULL OFF BIPAP AND PULL AT LINES, TUBES, AND DEVICES. SITTER AT BEDSIDE. PROVIDER CALLED, ABG OBTAINED. VBG ORDERED TO COMPARE. VITAL SIGNS ASSESSED. PT MOVING ALL EXTREMTIES BUT DOES NOT FOLLOW COMMAND. BED IS LOWERED, CALL LIGHT WITH IN REACH.
[2023-01-27 05:31] LABS: BASOPHILS 0.3 % (0-2); EOSINOPHILS 0.7 % (0-6); HEMOGLOBIN 10.5 g/dL (12.0-18.0); LYMPHOCYTES 8.8 % (24-44); MCH 25.6 (27-36); MCHC 30.9 g/dl (30-36); MCV 82.7 fl (81-99); MONOCYTES 9.2 % (0-12); PLATELET COUNT 327 K/uL (140-440); RBC 4.11 M/ul (4.3-5.7); RDW 18.7 (10.5-15.0)
[2023-01-27 05:46] LABS: PH, VENOUS 7.195 (7.31-7.41)
[2023-01-27 05:56] LABS: ALBUMIN 2.6 g/dL (3.4-5.0); ALBUMIN/GLOBULIN RATIO 0.67 (1.1-2.4); ANION GAP 15.9 (7-21); BILIRUBIN, TOTAL 0.4 ng/dL (0.2-1.0); BUN/CREATININE RATIO 13.48 (6.0-28.6); CREATININE, SERUM 3.56 mg/dL (0.55-1.02); POTASSIUM 4.9 mmol/L (3.5-5.1); PROTEIN, TOTAL 6.5 g/dL (6.4-8.2)
--- NOTE | 2023-01-27 07:10 | NUR ---
PT LAB VALUES RESULTED WITH WORSENING VALUES. PT WAS REPOSITIONED AT 0540, DECREASED AMS NOTICED AT THIS POINT. PROVIDER INFORMED, PROVIDER THEN SHOWED UP AT BEDSIDE. PT WAS HAD INCREASINGLY WORSE MENTAL STATUS WITH IN 30 MINS. BP STARTED TO DECREASE, NOREPI GTT STARTED. PROVIDER SPOKE WITH FAMILY AND PT REMAINS A FULL CODE. ANESTHSIA CALLED, ANESTHSIA ARRIVED AT BEDSIDE AND WAS INTUBATED AT 0640. SURGERY WAS CALLED, AND ARRIVED AT BEDSIDE AT 0705 AND CENTRAL LINE WAS PLACED. PROPOFOL GTT STARTED FOR SEDATION. REPOSRT GIVEN TO ONCOMING NURSE
--- NOTE | 2023-01-27 07:10 | NUR ---
REPORT RECEIVED. PATIENT IS INTUBATED. DR. GUILLERMO IS IN ROOM TO PLACE CVC.
--- NOTE | 2023-01-27 07:30 | NUR ---
RIJ PLACED BY DR. GUILLERMO. XRAY DONE. PROPOFOL GTT AT 25 MCG/KG/HR, BASED ON WEIGHT OF 137 KG.
--- NOTE | 2023-01-27 08:00 | NUR ---
ASSESSMENT DONE. VENT SETTINGS, TV-420, FIO2-40, RR-24, PEEP-5, PIP-26, ETCO2-38. SIZE 7 ETT. CVC TO RIJ INTACT, WAITING READ ON XRAY THIS LINE PLACE APPROX 45 MIN AGO. LEVOPHED GTT AT 5 MCG/MIN. CASTELLANOS CATH PATENT, 3 ML URINE. WRIST RESTRAINTS ON BILAT TO PROTECT ETT.
--- NOTE | 2023-01-27 08:23 | NUR ---
MED REC COMPLETE
--- NOTE | 2023-01-27 09:00 | NUR ---
TO CT VIA BED. REMAINS ON VENT. LEVOPHED AT 7 MCG/MIN. PROPOFOL 25 MCG/KG/MIN.
--- NOTE | 2023-01-27 09:01 | NUR ---
FACE SHEET FAXED TO [facility]
[2023-01-27 09:19] LABS: BILIRUBIN, URINE POSITIVE (negative); BLOOD/HGB, URINE SMALL (Negative); KETONE, URINE TRACE (Negative); LEUK ESTERASE, URINE SMALL (negative); NITRITE, URINE NEGATIVE (negative)
--- NOTE | 2023-01-27 09:25 | NUR ---
RETURNED TO CCU. TOLERATED CT WELL. UA SENT TO LAB EARLIER. VENT SETTING, TV-420, FIO2-40, PEEP-5, RR-20, PIP-26, ETCO2-44. SEE FLOW SHEET FOR TITRATION OF LEVOPHED GTT AND PROPOFOL.
[2023-01-27 09:30] LABS: CRYSTALS, URINE CALCIUM OXALATE 1+ (0-1+); WHITE BLOOD CELLS, URINE 21-40 /HPF (0-5)
[2023-01-27 09:31] LABS: BACTERIA, URINE 2+ /hpf (negative); EPITHELIAL CELLS, URINE SQUAMOUS 1+ /lpf (0-1+)
[2023-01-27 09:32] LABS: CASTS, URINE HYALINE 2+ \\lpf; COLLECTION TYPE, URINE CATH; REFLEX CULTURE, URINE Yes (No)
--- NOTE | 2023-01-27 10:37 | NUR ---
[facility] TEAM HERE TO TRANSFER PATIENT TO [facility]. REPORT TO THEM.
--- NOTE | 2023-01-27 14:03 | OR ---
[facility] [address] [place], [place] [address] Signed DATE OF OPERATION: 01/27/2023 SURGEON: Yonis Polanco MD PREOPERATIVE DIAGNOSIS: Acute renal failure with hypotension. POSTOPERATIVE DIAGNOSIS: Acute renal failure with hypotension. PROCEDURES: 1. Placement right IJ triple-lumen catheter. 2. Physician directed ultrasound. ESTIMATED BLOOD LOSS: None. INDICATIONS: Marilee is a 72-year-old obese female, who has been readmitted to our hospitalist service in the ICU. Apparently, she was here a few days ago. She has come back with anuric renal failure and hypotension. They were able to place one tiny peripheral IV. She was just intubated by our nurse air value tester. I was asked by the hospitalist service as the local general surgeon to place triple-lumen catheter for Marilee for ongoing CVP monitoring as well as blood draws and treatment. Of course, she is completely out, intubated on propofol drip. Her family is actually on the way. DESCRIPTION OF PROCEDURE: Marilee was kept supine on her ICU bed. We prepped her right IJ and chest wall sterilely. The ultrasound was brought in sterilely and we found her right IJ along with her carotid artery. We were able to inject some local anesthetic in her neck and we passed the needle under direct visualization into the right IJ and we had withdrawal good venous nonpulsatile dark blood. We passed the wire without resistance. We then used the ultrasound to check the position of the wire inside the internal jugular vein. After this, track was dilated and the triple-lumen catheter was inserted up to 18 cm. It was almost 4 cm just from the skin down to the IJ due to her body mass index. Each port was able to draw and flush quite nicely. Some additional local was injected on the side of her neck and we secured the catheter with interrupted silk sutures. Dry plastic occlusive dressing was applied per nursing staff. Chest x-ray shows the triple-lumen catheter in good position with no pneumothorax. Marilee seem to tolerate the procedure quite well. Electronically Signed By: YONIS POLANCO MD 01/27/23 1403 PATIENT NAME: MARILEE WELCH OPERATIVE REPORT DATE OF : 54 REPORT #: [id number] PHYSICIAN: YONIS POLANCO MD PCP: MAX LYNCH MD REPORT IS CONFIDENTIAL AND NOT TO BE RELEASED WITHOUT AUTHORIZATION [address] [address] Signed Yonis Polanco MD ALB/MODL /[id number] cc: Yonis Polanco MD Copies: YONIS POLANCO MD ~ Electronically Signed By: YONIS POLANCO MD 01/27/23 1403 PATIENT NAME: MARILEE WELCH OPERATIVE REPORT DATE OF : 54 REPORT #: [id number] PHYSICIAN: YONIS POLANCO MD PCP: MAX LYNCH MD REPORT IS CONFIDENTIAL AND NOT TO BE RELEASED WITHOUT AUTHORIZATION
== END 2023-01-27 11:20 | disposition short-term general hospital (02) | DRG 308 ==
LOC: ED 12:46 → CCU 16:22
PROVIDERS: Emergency Medicine; ADMIT Family Medicine; ATTEND Family Medicine
PROC: 3E033XZ Introduction of Vasopressor into Peripheral Vein, Percutaneous Approach (ICD-10-PCS; 2023-01-25)
PROC: 4A133R1 Monitoring of Arterial Saturation, Peripheral, Percutaneous Approach (ICD-10-PCS; principal; 2023-01-26)
PROC: 5A09357 Assistance with Respiratory Ventilation, Less than 24 Consecutive Hours, Continuous Positive Airway Pressure (ICD-10-PCS; 2023-01-26)
PROC: 0BH17EZ Insertion of Endotracheal Airway into Trachea, Via Natural or Artificial Opening (ICD-10-PCS; 2023-01-27)
PROC: 5A1935Z Respiratory Ventilation, Less than 24 Consecutive Hours (ICD-10-PCS; 2023-01-27)
PROC: 02HV33Z Insertion of Infusion Device into Superior Vena Cava, Percutaneous Approach (ICD-10-PCS; 2023-01-27)
PROC: B548ZZA Ultrasonography of Superior Vena Cava, Guidance (ICD-10-PCS; 2023-01-27)
DX: I48.91 Unspecified atrial fibrillation (principal); J96.01 Acute respiratory failure with hypoxia; J96.02 Acute respiratory failure with hypercapnia; S32.021A Stable burst fracture of second lumbar vertebra, initial encounter for closed fracture; N17.9 Acute kidney failure, unspecified; E72.20 Disorder of urea cycle metabolism, unspecified; Z68.41 Body mass index [BMI] 40.0-44.9, adult; E87.5 Hyperkalemia; E11.9 Type 2 diabetes mellitus without complications; X58.XXXA Exposure to other specified factors, initial encounter; J44.9 Chronic obstructive pulmonary disease, unspecified; I50.9 Heart failure, unspecified; E86.0 Dehydration; I11.0 Hypertensive heart disease with heart failure; E78.00 Pure hypercholesterolemia, unspecified; E66.9 Obesity, unspecified; I95.9 Hypotension, unspecified; Z79.01 Long term (current) use of anticoagulants; Z88.7 Allergy status to serum and vaccine; Z87.891 Personal history of nicotine dependence; Z79.84 Long term (current) use of oral hypoglycemic drugs; Z79.85 Long-term (current) use of injectable non-insulin antidiabetic drugs; Z78.1 Physical restraint status
CPT/HCPCS: 00532; 31500; 36415; 36556; 36600; 51701; 51702; 51798; 70450; 71045; 74176; 80048; 80053; 81001; 81003; 82140; 82570; 82803; 83735; 84100; 84156; 85025; 93005; 93010; 94002; 94644; 94660; 97161; 99285-25; A9270; J1170; J2060; J2405; J2704; J3475; J3490; J7030; J7121

== ENCOUNTER 2023-11-25 17:42 | Inpatient (IN) | payer MEDICARE, OTHER ==
[~2023-11-25] VITALS: Ht 182.9 cm; Wt 166.5 kg
[2023-11-25] MEDS ORDERED: ALBUTEROL/IPRATROPIUM 3 ML NEB INH PRN (17:45)
[2023-11-25 17:56] LABS: BASOPHILS 0.2 % (0-2); EOSINOPHILS 0.1 % (0-6); HEMATOCRIT 26.9 % (35.0-50.0); HEMOGLOBIN 8.1 g/dL (12.0-18.0); LYMPHOCYTES 6.8 % (24-44); MCH 24.5 (27-36); MCHC 30.1 g/dl (30-36); MCV 81.5 fl (81-99); MONOCYTES 9.1 % (0-12); NEUTROPHILS 83.8 % (39-80); PLATELET COUNT 232 K/uL (140-440); RDW 17.7 (10.5-15.0)
[2023-11-25] MEDS ORDERED: methylPREDNISolone SOD SUCC 125 MG/2 ML VIAL IV ONE (18:15)
[2023-11-25] MEDS ORDERED: FUROSEMIDE 40 MG TAB PO ONE (18:15)
[2023-11-25] MEDS ORDERED: ALBUTEROL/IPRATROPIUM 3 ML NEB INH ONE (18:15)
[2023-11-25 18:19] LABS: ALBUMIN 3.2 g/dL (3.4-5.0); ALBUMIN/GLOBULIN RATIO 0.8 (1.1-2.4); ANION GAP 5.2 (7-21); BILIRUBIN, TOTAL 0.9 ng/dL (0.2-1.0); BUN/CREATININE RATIO 13.13 (6.0-28.6); CALCIUM 8.7 mg/dL (8.5-10.1); CREATININE, SERUM 0.99 mg/dL (0.55-1.02); MAGNESIUM 1.6 mg/dL (1.8-2.4); POTASSIUM 4.2 mmol/L (3.5-5.1); PROTEIN, TOTAL 7.2 g/dL (6.4-8.2)
[2023-11-25] MEDS ORDERED: FUROSEMIDE 40 MG/4 ML VIAL IV ONE (18:30)
[2023-11-25] MEDS ORDERED: PROCHLORPERAZINE EDISYLATE 10 MG/2 ML VIAL IV PRN (19:45)
[2023-11-25] MEDS ORDERED: ondansetron HCL 4 MG/2 ML VIAL IV PRN (19:45)
[2023-11-25] MEDS ORDERED: bisacodyL 10 MG SUPP PR PRN (19:45)
[2023-11-25] MEDS ORDERED: ACETAMINOPHEN 325 MG TAB PO PRN (19:45)
[2023-11-25] MEDS ORDERED: ENOXAPARIN SODIUM 40 MG/0.4 ML SYR SUB-Q SCH (19:46)
--- NOTE | 2023-11-25 20:54 | NUR ---
pt brought to room by ed rn, primary rn crystal in room receiving bedside report. pt transfered from ed stretcher to ms bed via air transfer slide-4pa. purewick in place by lewis. admission completed and poc discussed, call light and personal belongings in reach.
[2023-11-25] MEDS ORDERED: ALBUTEROL SULFATE 0.5% 2.5 MG/0.5 ML VIAL INH PRN (21:00)
[2023-11-25] MEDS ORDERED: MELATONIN 3 MG TAB PO PRN (21:00)
--- NOTE | 2023-11-25 21:15 | NUR ---
REPORT RECEIVED FROM KIP LI. PT ARRIVED TO ROOM 114 VIA STRETCHER, REQUIRED MAX ASSIST AND HOVER MAT FOR TRANSFER. ORIENTED X 4, SLIGHTLY ANXIOUS. DENIES PAIN. VSS. O2 SATS WNL ON 2L O2 VIA N/C. DENIES SOB. NOTED W/ HACKING COUGH, PT REPORTS WHITE SPUTUM IN ER. HRR. BTA. REPORTS LBM TODAY. PUREWICK IN PLACE-PT VOIDING CLEAR URINE IN LARGE AMTS. SKIN FOLDS (BREASTS, PANNUS, GROIN, COCCYX) W/ BRIGHT RED RASH, VERY MOIST AND ODOROUS. MD IN ROOM AND OK'D ORDER FOR DESENEX ANTI-FUNGAL POWDER. SL RFA WNL. CALL LIGHT WITHIN REACH. PT LEFT W/ DR. CENTENO IN ROOM.
[2023-11-25 21:17] VITALS: BP 152/85
[2023-11-25 21:42] VITALS: BP 152/85
[2023-11-25] MEDS ORDERED: MICONAZOLE NITRATE 1 EA BTL TOP SCH (21:45)
[2023-11-25] MEDS ORDERED: ATORVASTATIN 20 MG TAB PO SCH (22:15)
[2023-11-25 23:24] LABS: INFLUENZA B NAA NEGATIVE (NEGATIVE); RESPIRATORY SYNCYTIAL VIR NAA NEGATIVE (NEGATIVE)
[2023-11-26] VITALS (7 sets, daily range): BP systolic 114–153; BP diastolic 57–82
--- NOTE | 2023-11-26 00:05 | NUR ---
PT AWAKE, REPORTS ANXIETY AND DIFFICULTY SLEEPING. PT WANTS SOMEONE IN ROOM TO TALK TO. MEDICATED W/ PRN MELATONIN PER EMAR. ASSISTED W/ TV. CALL LIGHT WITHIN REACH.
--- NOTE | 2023-11-26 01:36 | NUR ---
PT ADMITTED ~11/24. COPD/CHF EXAC. SPOUSE WEANED O2 APPARENTLY AT HOME. 2L O2 NC. 2+ EDEMA TO BLE. LASIX IN ER-PUREWICK IN PLACE, UO CLEAR. PT DIRTY AND ODOROUS-BED BATH DONE AND ANTI FUNGAL POWDER APPLIED TO SKIN FOLD RASHES. PT USES FWW TO BSC AT HOME. HAS NOT BEEN OOB HERE.
--- NOTE | 2023-11-26 02:39 | NUR ---
PT AWAKE, REPORTS DISPOSIBLE BRIEF WET. ROMI CARE PROVIDED, NEW BRIEF PLACED. PUREWICK IN PLACE. ASSISTED PT TO REPOSITION, NEEDS ENC TO PARTICIPATE. O2 SATS 88%, O2 INCREASED TO 2L. O2 SATS NOW >90%.
[2023-11-26 05:33] LABS: BASOPHILS 0.1 % (0-2); HEMATOCRIT 28.2 % (35.0-50.0); HEMOGLOBIN 8.5 g/dL (12.0-18.0); LYMPHOCYTES 3.1 % (24-44); MCH 24.6 (27-36); MCHC 30.2 g/dl (30-36); MCV 81.6 fl (81-99); MONOCYTES 1.1 % (0-12); NEUTROPHILS 95.7 % (39-80); PLATELET COUNT 231 K/uL (140-440); RBC 3.46 M/ul (4.3-5.7); RDW 17.5 (10.5-15.0)
[2023-11-26 05:41] LABS: ANION GAP 5.7 (7-21); BUN/CREATININE RATIO 11.34 (6.0-28.6); CALCIUM 9.2 mg/dL (8.5-10.1); CREATININE, SERUM 0.97 mg/dL (0.55-1.02); MAGNESIUM 1.5 mg/dL (1.8-2.4); POTASSIUM 3.7 mmol/L (3.5-5.1)
--- NOTE | 2023-11-26 06:03 | NUR ---
PT AWAKE, WATCHING TV. C/O 09/19 BACKACHE-MEDICATED W/ PRN TYLENOL PER EMAR. PT DECLINED GETTING UP TO RECLINER OR EOB AT THIS TIME. REMAINS ON 1L O2 N/C. CALL LIGHT WITHIN REACH.
--- NOTE | 2023-11-26 07:10 | NUR ---
UR CLINICAL REVIEW: 2 MN FOR VERSALUS-MEETS INPT CRITERIA MEDICARE INPT 11/25/23 @ 2002 ORDER MATCHES REG NO AUTH REQUIRED PER MEDICARE GUIDELINES DISCHARGE DISPO PENDING FURTHER EVALUATION AND CASE MANAGEMENT ASSESSMENT
--- NOTE | 2023-11-26 07:56 | NUR ---
PT RESTING IN BED WITH EYES SHUT, RECEIVED BEDSIDE REPORT FROM NIGHT RN. O2 REMAINS IN PLACE AT 2L. PT ALLOWED TO SLEEP THIS MORNING, CALL LIGHT WITHIN REACH.
[2023-11-26] MEDS ORDERED: ALBUTEROL SULFATE 0.5% 2.5 MG/0.5 ML VIAL INH SCH (08:00)
[2023-11-26] MEDS ORDERED: ALBUTEROL/IPRATROPIUM 3 ML NEB INH SCH (08:00)
[2023-11-26] MEDS ORDERED: CEFTRIAXONE/SODIUM CHLORIDE 2 GM/100 ML PIGGYBACK IV SCH (09:00)
[2023-11-26] MEDS ORDERED: APIXABAN 5 MG TAB PO SCH (09:00)
[2023-11-26] MEDS ORDERED: FUROSEMIDE 40 MG/4 ML VIAL IV SCH (09:00)
[2023-11-26] MEDS ORDERED: MAGNESIUM SULFATE 2 GM/50 ML BAG IV ONE (09:00)
[2023-11-26] MEDS ORDERED: predniSONE 20 MG TAB PO SCH (09:00)
[2023-11-26] MEDS ORDERED: AZITHROMYCIN 250 MG TAB PO SCH (09:00)
[2023-11-26] MEDS ORDERED: PANTOPRAZOLE SODIUM 40 MG TABEC PO SCH (09:00)
--- NOTE | 2023-11-26 09:08 | NUR ---
PT REFUSING HER ELIQUIS THIS MORNING, STATES HER PCP DISCONTINUED MEDICATION LAST WEEK IT WAS "TOO STRONG". HOSPITALIST INFORMED AND AGREES TO HOLD AT THIS TIME. SEE MAR - NOT GIVEN.
[2023-11-26] MEDS ORDERED: POTASSIUM CHLO10 ME2 PO (09:30)
--- NOTE | 2023-11-26 10:07 | NUR ---
PT RESTING IN BED, IV SHUT OFF, STARTED MAG INFUSION ORDERED - SEE APR. PT STATES SHE IS HAVING BACK PAIN STILL, TYLENOL NOT DUE, SHE STATES SHE TAKES TYLENOL MORE FREQUENTLY AT HOME THAN WE ARE PRESCRIBING AND I EXPLAIN TOO MUCH TYLENOL AFFECTING HER LIVER, WE ARE ONLY ALLOWED TO GIVE Q6HRS WHILE SHE IS HERE AND SHE SHOULD BE WATCHING HER DOSE OF TYLENOL TO NOT EXCEED 4GM WHICH IS THE MAX AMOUNT SHE SHE TAKE. PT ROLLED OVER ON SIDE AND BACK TO SLEEP. CALL LIGHT WITHIN REACH. ECHO COMPLETED THIS MORNING.
--- NOTE | 2023-11-26 10:09 | NUR ---
PATIENT ALERT AND ORIENTED, LYING IN BED. STATES SHE LIVES WITH "PEOPLE" IN A MOBILE HOME. SHE HAS A NARROW GARDNER BUT NO STAIRS. HAS HOME OXYGEN, SHE THINK THROUGH [place], WALKER, BEDSIDE COMMODE. SHE DOES NOT DRIVE BUT FAMILY/FRIENDS ASSIST WITH TRANSPORTATION. DENIES FINANCIAL ISSUES STATING SHE IS ABLE TO PAY UTILITIES AND HAS NO ISSUES OBTAINING FOOD OR MEDICATIONS. STATES SHE WILL NOT NEED ASSISTANCE WITH TRANSPORTATION HOME, FAMILY WILL PROVIDE IT. DENIES OTHER CM NEEDS AT THIS TIME. WILL NOTIFY STAFF WITH CHANGES.
[2023-11-26] MEDS ORDERED: TYLENOL EXTRA500 MG PO (11:18)
--- NOTE | 2023-11-26 11:19 | NUR ---
MED REC COMPLETE
--- NOTE | 2023-11-26 11:26 | NUR ---
PT INFORMED WE CALLED FOR A BED, WOULD NOT BE HERE UNTIL TOMORROW. PT WOULD LIKE TO GO HOME IF SHE COULD NOT GET A BED, MEDICALLY PER MD SHE IS STABLE AND CAN GO HOME. PT INFORMED AND AGREES AND RIDE WILL BE HERE THIS AFTERNOON. IV COMPLETE, SALINE LOCKED. ALL PT CARE NEEDS MET AT THIS TIME, CALL LIGHT WITHIN REACH.
[2023-11-26] MEDS ORDERED: PREDNISONE20 MG PO (11:53)
[2023-11-26] MEDS ORDERED: CEFUROXIME500 MG PO (11:55)
[2023-11-26] MEDS ORDERED: AZITHROMYCIN500 MG PO (11:55)
[2023-11-26] MEDS ORDERED: ADVAIR HFA 115-12 GM INH (11:56)
[2023-11-26] MEDS ORDERED: PHARMACY RENAL DOSE ADJUSTMENT 1 DOSE MISC PO SCH (12:00)
--- NOTE | 2023-11-27 21:38 | EKG ---
[facility] [address] [facility] [place] [address] Signed Atrial fibrillation Low voltage QRS Septal infarct , age undetermined Abnormal ECG When compared with ECG of 25-JAN-2023 13:43, Vent. rate has decreased BY 76 BPM Septal infarct is now present Confirmed by Kp Centeno MD ([id number]) on 11/27/2023 9:38:04 PM Electronically Signed By: KP CENTENO DO 11/27/23 2138 PATIENT NAME: REBEKAHMARILEE JIM Electrocardiogram DATE OF : 54 PHYSICIAN: KP CENTENO DO REPORT #: [id number] REPORT IS CONFIDENTIAL AND NOT TO BE RELEASED WITHOUT AUTHORIZATION
[2023-11-28 00:18] LABS: IRON BINDING CAPACITY TOTAL 328 ug/dL (240-450); IRON,SERUM OR PLASMA 22 ug/dL (28-170); TRANSFERRIN SATURATION 7 %sat (20-50)
== END 2023-11-26 13:45 | disposition home or self-care (01) | DRG 291 ==
LOC: ED 17:42 → MS 20:03
PROVIDERS: Emergency Medicine; ADMIT Student in an Organized Health Care Education/Training Program; ATTEND Student in an Organized Health Care Education/Training Program
DX: I11.0 Hypertensive heart disease with heart failure (principal); I50.33 Acute on chronic diastolic (congestive) heart failure; J96.21 Acute and chronic respiratory failure with hypoxia; J44.1 Chronic obstructive pulmonary disease with (acute) exacerbation; I48.91 Unspecified atrial fibrillation; E66.9 Obesity, unspecified; E78.00 Pure hypercholesterolemia, unspecified; K21.9 Gastro-esophageal reflux disease without esophagitis; L30.4 Erythema intertrigo; Z88.7 Allergy status to serum and vaccine; Z88.8 Allergy status to other drugs, medicaments and biological substances; Z99.81 Dependence on supplemental oxygen; Z87.891 Personal history of nicotine dependence; Z79.899 Other long term (current) drug therapy
CPT/HCPCS: 36415; 51702; 71045; 80048; 80053; 83550; 83735; 83880; 84484; 85025; 87502; 93005; 93010; 93306; 94640; 99285-25; A9270; J0696; J1650; J1940; J2919; J3475; J7512; U0002

== ENCOUNTER 2024-01-27 17:34 | Observation (INO) | payer MEDICARE, OTHER ==
[~2024-01-27] VITALS: Ht 182.9 cm; Wt 139.1 kg
[~2024-01-27 17:34] MED LIST changes: +ADVAIR HFA 115-12 GM INH; +AZITHROMYCIN500 MG PO; +CEFUROXIME500 MG PO; +POTASSIUM CHLO10 ME2 PO; +TYLENOL EXTRA500 MG PO
[2024-01-27] MEDS ORDERED: ALBUTEROL/IPRATROPIUM 3 ML NEB INH PRN (18:00)
[2024-01-27 18:17] LABS: BASOPHILS 0.4 % (0-2); EOSINOPHILS 0.7 % (0-6); HEMATOCRIT 38.4 % (35.0-50.0); HEMOGLOBIN 11.8 g/dL (12.0-18.0); LYMPHOCYTES 7.2 % (24-44); MCH 26.7 (27-36); MCHC 30.9 g/dl (30-36); MCV 86.6 fl (81-99); MONOCYTES 6.2 % (0-12); NEUTROPHILS 85.5 % (39-80); PLATELET COUNT 355 K/uL (140-440); RBC 4.43 M/ul (4.3-5.7); RDW 18.6 (10.5-15.0)
[2024-01-27 18:34] LABS: ALBUMIN 2.7 g/dL (3.4-5.0); ALBUMIN/GLOBULIN RATIO 0.57 (1.1-2.4); ANION GAP 11.6 (7-21); BILIRUBIN, TOTAL 0.3 ng/dL (0.2-1.0); CALCIUM 9.1 mg/dL (8.5-10.1); MAGNESIUM 1.5 mg/dL (1.8-2.4); POTASSIUM 4.6 mmol/L (3.5-5.1); PROTEIN, TOTAL 7.4 g/dL (6.4-8.2)
[2024-01-27 18:49] LABS: BUN/CREATININE RATIO 13.82 (6.0-28.6); CREATININE, SERUM 0.94 mg/dL (0.55-1.02)
[2024-01-27] MEDS ORDERED: MORPHINE SULFATE 4 MG/ML VIAL IV PRN (20:45)
[2024-01-27 20:48] LABS: PARTIAL THROMBOPLASTIN TIME 24.8 Sec (22.9-41.3)
[2024-01-27 20:52] LABS: INR 1.08 (0.80-1.30); PROTIME 13.3 Sec (11.2-14.2)
[2024-01-27] MEDS ORDERED: MORPHINE SULFATE 4 MG/ML VIAL IV ONE (23:00)
[2024-01-28] VITALS (10 sets, daily range): BP systolic 114–138; BP diastolic 55–98
[2024-01-28] MEDS ORDERED: FAMOTIDINE 20 MG/ 2 ML VIAL IV SCH (00:42)
[2024-01-28] MEDS ORDERED: MORPHINE SULFATE 10 MG/ML VIAL IV PRN (00:45)
[2024-01-28] MEDS ORDERED: ondansetron HCL 4 MG/2 ML VIAL IV PRN (00:45)
--- NOTE | 2024-01-28 02:00 | NUR ---
PATIENT REPOSITIONED IN BED BY STAFF. SCHEDULED MEDICATION ADMINISTERED. PRN PAIN MEDICATION ADMINISTERED FOR 8/10 BILAT RIB PAIN. NEW PUREWICK AND BRIEF PLACED AFTER ROMI CARE PROVIDED. PATIENT HAS NO FURTHER NEEDS. CALL LIGHT IN REACH. BED ALARM ON.
--- NOTE | 2024-01-28 02:35 | NUR ---
PATIENT TO FLOOR BY LINE SUPERVISOR. PATIENT TRANSFERRED FROM STRETCHER TO BED BY STAFF. VS OBTAINED AND RECORDED. 2L NC IN PLACE. BED WEIGHT OBTAINED AND RECORDED. ASSESSMENT COMPLETE. PATIENT EDUCATED TO ROOM AND CALL LIGHT. THONG CALLEJASILIZES UNDERSTANDING. CALL LIGHT IN REACH. BED ALARM ON.
--- NOTE | 2024-01-28 02:50 | NUR ---
PATIENT HEARD HOLLERING OUT. PATIENT SCAR WAS OUT OF BRIEF, WATER SPILLED ON FLOOR, AND BLANKETS ON FLOOR. PATIENT STATES SHE THOUGHT SHE WAS AT HOME, AND NOW SHE KNOWS SHE IS AT [facility]. PATIENT DENIES FURTHER NEEDS AT THIS TIME. CALL LIGHT IN REACH. BED ALARM ON.
--- NOTE | 2024-01-28 05:45 | NUR ---
PATIENT EUNICE IN ROOM. THIS RN AND SUPERVISOR CLAIMS TO ROOM. PUREWICK ON FLOOR AND PATIENT NC TANGLED INTO A BALL. WHEN THIS RN ASKED PATIENT WHY THE NC WAS TANGLED UP SHE STATES "I AM BORED!!!! WHAT ELSE DO YOU EXPECT ME TO DO?!" THEN STUCK HER TONGUE OUT AT ME. THIS RN ENCOURAGED PATIENT TO WEAR NC. PATIENT WORE BC FOR APPROX 1 MIN THEN PUT IT IN HER MOUTH. THIS RN PLACED NC MICHAEL IN PATIENTS NOSE. VS AND I&Os OBTAINED AND RECORDED. BED ALARM ON. CALL LIGHT IN REACH.
--- NOTE | 2024-01-28 06:33 | NUR ---
THIS RN PLACED CALL TO MD REGARDING PATIENT ALTERED MENTAL STATUS. NEW ORDERS RECIEVED. VERIFIED USING REPEAT BACK METHOD.
[2024-01-28 06:55] LABS: BILIRUBIN, URINE NEGATIVE (negative); BLOOD/HGB, URINE NEGATIVE (Negative); KETONE, URINE NEGATIVE (Negative); LEUK ESTERASE, URINE NEGATIVE (negative); NITRITE, URINE NEGATIVE (negative); PH, URINE 5.5 (5-7)
[2024-01-28 07:17] LABS: TSH, 3RD GENERATION 0.302 uIU/mL (0.358-3.740)
--- NOTE | 2024-01-28 07:44 | NUR ---
RECEIVED REPORT FROM [facility] KIP ROGER. PT RESTING IN BED, DOOR CLOSED, PT IS YELLING OUT. UPON ENTERING PT STATES SHE IS FINE, DOES NOT HAVE ANY NEEDS. NOT ORIENTED TO PLACE, STATES SHE IS AT [place], REMINDED SHE IS IN THE HOSPITAL BUT QUICKLY FORGETS. O2 CONTINUES TO BE PULLED OFF BY PATIENT OR PUT IN MOUTH, REMINDING PT TO KEEP OXYGEN IN PLACE, SATS PER [facility] TO LOW 80'S WHEN REMOVED, PT IS PULLING AND RESTLESS IN BED. ASKED IF SHE IS IN PAIN BUT CAN NOT CLEARLY TELL ME WHERE BUT STATES SOMETIMES AND THEN HER THOUGHTS/CONVERSATION DRIFTS OFF TO SOMETHING ELSE. HARD TO KEEP HER FOCUSED AND ON TOPIC. ATTENDS IN PLACE. PT DENIES ANY NEEDS AT THIS TIME, REMINDED PATIENT TO PLEASE NOT YELL OUT, INFORMED IT WAS 7AM, SHE VERBALIZED SHE DID NOT REALIZE IT WAS SO EARLY. BED ALARM IN PLACE FOR SAFETY. CALL LIGHT WITHIN REACH. ALL PT CARE NEEDS MET AT THIS TIME.
[2024-01-28] MEDS ORDERED: MAGNESIUM SULFATE 2 GM/50 ML BAG IV ONE (08:00)
[2024-01-28] MEDS ORDERED: LORazepam 2 MG/ML VIAL IV PRN (08:30)
[2024-01-28] MEDS ORDERED: LIDOCAINE HCL 4% 1 EACH PATCH TD SCH (09:00)
[2024-01-28 09:52] LABS: AMPHETAMINES, URINE NEGATIVE (NEGATIVE); BARBITURATES, URINE NEGATIVE (NEGATIVE); BENZODIAZEPINE, URINE NEGATIVE (NEGATIVE); BUPRENORPHINE, URINE NEGATIVE (NEGATIVE); CANNABINOID, URINE NEGATIVE (NEGATIVE); COCAINE, URINE NEGATIVE (NEGATIVE); ECSTASY, URINE NEGATIVE (NEGATIVE); FENTANYL, URINE NEGATIVE (NEGATIVE); METHADONE, URINE NEGATIVE (NEGATIVE); OPIATES, URINE POSITIVE (NEGATIVE); OXYCODONE, URINE NEGATIVE (NEGATIVE); PHENCYCLIDINE, URINE NEGATIVE (NEGATIVE)
[2024-01-28] MEDS ORDERED: ALBUTEROL SULFATE 0.083% 3 ML VIAL INH PRN (10:30)
[2024-01-28] MEDS ORDERED: MICONAZOLE NITRATE 1 EA BTL TOP SCH (10:40)
--- NOTE | 2024-01-28 10:50 | NUR ---
VISITED DURING SPIRITUAL CARE ROUNDS. PT APPEARED TO BE SLEEPING. DID NOT DISTURB. PROVIDED PRAYER.
--- NOTE | 2024-01-28 11:20 | NUR ---
Attempted to speak with Gerda. She does answer some questions, but alejandrinaetly yells, "come on". She cont. to live with her boyfriend, Shawn and her son. They live in a single wide trailer. She states she has a walker, wc, sit to stand, and a commode. She requires assistance for most activity. She denies use of a food bank and denies using food stamps. Pt plans on dc to home when she is discharged. She does talk about [place], but it is difficult to get a clear answer.
--- NOTE | 2024-01-28 11:30 | NUR ---
PT RESTING IN BED AT THIS TIME, VERY SLEEPY POST MEDS GIVEN FOR CT. O2 REMAINS IN PLACE AT THSI TIME, PT NOT PULLING AT LINES NOW. PER MD, ORDERS FOR POWDER FOR UNDER BREASTS/PANNUS/GROIN AREA ORDERED - SEE APR.
[2024-01-28] MEDS ORDERED: PANTOPRAZOLE SODIUM 40 MG TABEC PO SCH (11:55)
[2024-01-28] MEDS ORDERED: METOPROLOL SUCCINATE 100 MG TABCR PO SCH (11:55)
[2024-01-28] MEDS ORDERED: FUROSEMIDE 20 MG TAB PO SCH (11:56)
[2024-01-28] MEDS ORDERED: APIXABAN 5 MG TAB PO SCH (11:56)
[2024-01-28] MEDS ORDERED: HYDROCODONE/ACETA 5/325 TAB PO PRN (12:00)
--- NOTE | 2024-01-28 12:20 | NUR ---
PT IS RESTING, AWAKENS WHEN ASKED TO BUT QUICKLY DRIFTS BACK TO SLEEP. SHE DOES RECOGNIZE THAT SHE IS IN THE HOSPITAL THIS TIME. TELEMETRY PLACED ON PATIENT, CURRENTLY RUNNING AFIB IN THE 'S. PT WAS VERY RESISTENT TO HELPING/COOPERATE WITH CARES. CALL LIGHT WITHIN REACH, MY CONCERN IS THAT THE TELEMETRY LEADS WILL GET PULLED OFF PATIENT BECOMES MORE RESTLESS OR AGITATED WITH CARES. SHE REALLY REQUESTED TO BE LEFT ALONE AT THIS POINT. O2 SATS 90% ON 2L, SPOT CHECK LEVELS AT THIS TIME. LUNCH TRAY BROUGHT INTO PATIENT, PT REFUSED LUNCH AT THIS TIME, LEFT IN ROOM FOR POTENTIAL SHE WILL AWAKEN AND HAVE AN APPETITE.
--- NOTE | 2024-01-28 13:32 | NUR ---
IN TO ASSIST WITH PATIENT GETTING UP TO CHAIR. PATIENT UP TO CHAIR STAND PIVOT, 2PA FWW. PATIENT NOW IN CHAIR. CHAIR ALARM ON. CALL LIGHT IN REACH. NO FURTHER NEEDS AT THIS TIME.
--- NOTE | 2024-01-28 13:38 | NUR ---
PT IS UP IN CHAIR AT THIS TIME. SHE IS MOANING, HELP ME. OFFERED PAIN MEDS BUT SHE IS REFUSING, SHE IS DROWSY AND JUST IS NOT WANTING TO ENGAGE IN CONVERSATION. MEDS GIVEN ORALLY WITH WATER, NO ISSUES WITH SWALLOWING. AFTER TAKING MEDS, PT COUGHED AND STATES SHE CHANGES HER MIND, PAIN MEDS GIVEN FOR 7/10 PAIN TO RIBS - SEE MAR. CALL LIGHT WITHIN REACH, CHAIR ALARM IN PLACE.
[2024-01-28] MEDS ORDERED: ALBUTEROL/IPRATROPIUM 3 ML NEB INH SCH (14:00)
--- NOTE | 2024-01-28 14:05 | EKG ---
[facility] [address] [facility] [place] [address] Signed Atrial fibrillation Inferior infarct , age undetermined Abnormal ECG No previous ECGs available Confirmed by Bhavesh Centeno MD ([id number]) on 01/28/2024 2:05:22 PM Electronically Signed By: BHAVESH CENTENO DO 01/28/24 1405 PATIENT NAME: MARILEE WELCH Electrocardiogram DATE OF : 54 PHYSICIAN: BHAVESH CENTENO DO REPORT #: [id number] REPORT IS CONFIDENTIAL AND NOT TO BE RELEASED WITHOUT AUTHORIZATION
--- NOTE | 2024-01-28 15:00 | NUR ---
REPORT REC'D FROM TALA SHIN. PT SLEEPING IN RECLINER, NO ACUTE DISTRESS NOTED. O2 IN PLACE VIA NC AT 2L. TELE38 IN USE AFIB 70'S. CALL NEVAREZ IN REACH, CHAIR ALARM ACTIVATED, WHEELS LOCKED.
--- NOTE | 2024-01-28 15:05 | NUR ---
UR CLINICAL REVIEW: 2 MN FOR VERSALUS-MEETS OBS CRITERIA FOR PAIN CONTROL. WILL DISCUSS WITH MEDICARE ADMISSION ORDER NEEDED, MD NOTIFIED NO AUTH REQUIRED PER MEDICARE GUIDELINES DISCHARGE PENDING FURTHER CASE MANAGEMENT EVALUATION 01/29/24
--- NOTE | 2024-01-28 16:45 | NUR ---
Pt in recliner, yelling out, uncooperative with care, thrashing arms and legs. Pt unable/unwilling to follow directions or participate with care. This RN and WOODWORKING MACHINE SETTER Marnio castañedain to get patient out of recliner into bed when patient grabbed WOODWORKING MACHINE SETTER's R breast forcefully causing pain. WOODWORKING MACHINE SETTER visibly upset and needed to leave the room. This RN then placed patient gently on the floor to prevent patient and remaining staff injury. Additional staff to room. Pt incontinent of urine on the floor. Vanita sling placed under the patient and assisted into bed x 6 employees. Pt bathed, new gown donned and Desedex powder applied under breasts and skin folds. No injuries noted to patient. Dr. Fuller in patient room. No orders rec'd. Pt left in bed with SR up x4, bed low position, wheels locked and call suggs within reach. Pt instructed to call for assistance, verbalized understanding. Pt left in room quiet and cooperative. Patient has demonstrated similar behavior during past admissions and her behavior was discussed with her by learning and development officer and Security. Pt portraying remorsefulness of behavior.
--- NOTE | 2024-01-28 17:41 | NUR ---
THIS SECURITY GUARD DISPATCHER IN TO ASSIST OTHER STAFF GET PATIENT OFF OF FLOOR. PRIMARY RN, CHARGE NURSE, MS US ADMINISTRATIVE LAW JUDGE, AND 2 OTHER RNS IN ROOM TO ASSIST. ROLLED PATIENT TO PLACE DAVID SLING UNDER PATIENT, MANY STAFF MEMEBERS NEEDED PATIENT WAS FLALING ARMS AND WOULD NOT STAY STILL. HOYERED PATIENT BACK TO BED. BED BATH WAS GIVEN WHILE RN CHECKING PATIENT. ROMI CARE DONE. NEW ATTENDS IN PLACE. VITALS DONE AND GOOD. PATIENT IN BED RESTING AT THIS TIME. BED ALARM ON. CALL LIGHT IN REACH.
--- NOTE | 2024-01-28 18:26 | NUR ---
PT POOR ORAL/NUTRITION INTAKE AT PM MEAL. REMAINS IN BED WITH BED ALARM IN ACTIVATED. SR UP X 4, CALL NEVAREZ IN REACH, BED IN LOW POSITION AND LOCKED. FALL MATS ON EACH SIDE. PT CALM AND COOPERATIVE WITH CARE AT THIS TIME.
--- NOTE | 2024-01-28 19:27 | NUR ---
REPORT RECIEVED FROM DAY SHIFT RN. PATIENT RESTING IN BED WITH EYES CLOSED. RR EVEN AND UNLABORED. CALL LIGHT IN REACH.
[2024-01-28] MEDS ORDERED: BUDESONIDE 0.5 MG/2 ML VIAL INH SCH (20:00)
--- NOTE | 2024-01-28 20:07 | NUR ---
VERBAL ORDER TO REMOVE TELE. PT IN BED, BLAKEERING SLIGHTLY, SAYING SHE WAS HOT, ROOM COOL. SIDE CONVERSATION ABOUT PAST HISTORY WITH THIS MACHINE OPERATIONS SUPERVISOR AND HERSELF, SHE QUIT COMPLAINING, SAID SHE WAS TIRED. NO OTHER NEEDS.
--- NOTE | 2024-01-28 20:55 | NUR ---
PATIENT RESTING IN BED. VS AND I&Os OBTAINED AND RECORDED. LICOCANE PATCHES REMOVED. ASSESSMENT COMPLETE. PATIENT REPORTS 4/10 PAIN BUT NOT TELLING THIS RN WHERE THE PAIN IS LOCATED. PRN PAIN MEDICATION ADMINISTERED. SCHEDULED POWDER PLACED UNDER BILAT BREASTS AND PANNUS. NEW PUREWICK PLACED AFTER PERICARE PROVIDED. THIS RN EDUCATED PATIENT MULTIPLE TIMES ABOUT NOT REMOVING HER PUREWICK OR HER BEDDING WILL BECOME SOILED. PATIENT VERBILIZED UNDERSTANDING. PATIENT BED ALARM ON. PATIENT STATES "JUST SHUT THE LIGHT OFF AND LET ME SLEEP!". CALL LIGHT WITHIN REACH.
[2024-01-28] MEDS ORDERED: LIDOCAINE PATCH REMOVAL 1 EA TD SCH (21:00)
--- NOTE | 2024-01-28 23:27 | NUR ---
PATIENT RESTING IN BED ON BACK WITH EYES CLOSED. RR EVEN AND UNLABORED. NC IN PLACE. CALL LIGHT IN REACH. BED ALARM ON.
[2024-01-29] MEDS ORDERED: LORazepam 2 MG/ML VIAL IV PRN (00:30)
[2024-01-29] MEDS ORDERED: LORazepam 2 MG/ML VIAL IV ONE (00:30)
--- NOTE | 2024-01-29 00:30 | NUR ---
MD CALLED REGARDING PATIENT STATUS. NEW ORDERS RECIEVED. VERIFIED USING REPEAT BACK METHOD.
--- NOTE | 2024-01-29 00:45 | NUR ---
PATIENT HOLLERING OUT FROM ROOM. SCHEDULED MEDICATION ADMINISTERED. PATIENT NOW BEGINNING TO FOLLOW COMMANDS. FRESH LINENS, GARRY, BREIF AND PUREWICK PLACED AFTER PERICARE PROVIDED. 2L NC REMAINS IN PLACE AND O2 SAT REMAINS IN 90s. PATIENT ROOM CLEANED UP. BED ALARM ON. CALL LIGHT IN REACH.
--- NOTE | 2024-01-29 01:15 | NUR ---
PATIENT HEARD SCREAMING VERY LOUDLY FROM ROOM. THIS RN TO ROOM. PATIENT SCREAMING "HELP!! HELP!! HELP!!" EXTREMELY LOUD. WHEN THIS RN ASKED PATIENT WHAT WAS WRONG SHE CONTINUED TO SCREAM HELP EVEN LOUDER. PLANT TAXONOMY TEACHER TO ROOM. PATIENT BATTING AT THIS RN AND PLANT TAXONOMY TEACHER. PATIENT KICKING ARMS AND LEGS. PATIENT KICKED SIDE TABLE OVER WHILE LAYING IN BED, AND SPILLED EVERYTHING OFF THE TABLE ONTO THE FLOOR. PATIENT REMOVED NC AND WOULD NOT ALLOW STAFF TO PUT NC BACK ON. WE TRIED TO PLACE AN OXYMASK ON PATIENT AND SHE REFUSED, CONTINUEING TO SWING LIMBS AT STAFF. BUNDLE TIER TO ROOM. PATIENTS LIPS APPEARING TO TURN LIGHT BLUE WHILE YELLING, AND NOT WEARING O2. PATIENT O2 MID 80s. PLANT TAXONOMY TEACHER ENCOURAGING PATIENT TO WEAR O2. PATIENT AGREED AND O2 QUICKLY INCREASED TO HIGH 90s AND THE LIGHT BLUE AROUND HER MOUTH SLOWLY GOT BETTER. PLANT TAXONOMY TEACHER AND BUNDLE TIER REMAIN IN ROOM.
--- NOTE | 2024-01-29 01:22 | NUR ---
PATIENT HOLLERING OUT FROM ROOM. WHEN THIS RN ASKED PATIENT WHAT WAS WRONG SHE STATED "HELP! HELP!". THIS RN ASKED PATIENT IF SHE WAS IN PAIN AND SHE NODDED YES. PATIEN REPORTING 10/10 PAIN. PRN PAIN MEDICATION ADMINISTERED. PATIENT HOB ELEVATED TO BE ABLE TO SWALLOW PILL, WHEN HOB WAS UP, PATIENT WAS SCREAMING "DOWN! DOWN! DOWN!". THIS RN LOWERED HOB AND PATIENT STATED "YOU ARE A BUTT!!". PATIENT HAS NO FURTHER NEEDS. CALL LIGHT IN REACH. BED ALARM ON.
[2024-01-29 04:07] VITALS: BP 171/96
--- NOTE | 2024-01-29 04:13 | NUR ---
PATIENT HOLLERING OUT "HELP! HELP!". THIS RN AND KIRSTY RN INTO DO VS AND I&Os. PATIENT THRASHING AROUND IN BED, REACHING AND GRABBING AT STAFF. VS AND I&Os OBTAINED AND RECORDED. PATIENT RESTING IN BED AND APPEARS TO BE COMFORTABLE. NO FURTHER NEEDS. CALL LIGHT IN REACH. BED ALARM ON.
[2024-01-29 06:19] LABS: BASOPHILS 1.1 % (0-2); EOSINOPHILS 0.6 % (0-6); HEMATOCRIT 40.5 % (35.0-50.0); HEMOGLOBIN 11.9 g/dL (12.0-18.0); LYMPHOCYTES 4.8 % (24-44); MCHC 29.4 g/dl (30-36); MCV 88.3 fl (81-99); MONOCYTES 11.9 % (0-12); NEUTROPHILS 81.6 % (39-80); PLATELET COUNT 304 K/uL (140-440); RBC 4.59 M/ul (4.3-5.7); RDW 18.9 (10.5-15.0)
[2024-01-29 06:36] LABS: ALBUMIN 2.8 g/dL (3.4-5.0); ALBUMIN/GLOBULIN RATIO 0.62 (1.1-2.4); ANION GAP 10.6 (7-21); BILIRUBIN, TOTAL 0.3 ng/dL (0.2-1.0); BUN/CREATININE RATIO 15.23 (6.0-28.6); CALCIUM 9.2 mg/dL (8.5-10.1); CREATININE, SERUM 1.05 mg/dL (0.55-1.02); POTASSIUM 4.6 mmol/L (3.5-5.1); PROTEIN, TOTAL 7.3 g/dL (6.4-8.2)
--- NOTE | 2024-01-29 06:38 | NUR ---
PATIENT RESTING IN BED ON L SIDE WITH EYES CLOSED. RESPIRATIONS EVEN AND UNLABORED. CALL LIGHT IN REACH.
--- NOTE | 2024-01-29 07:10 | NUR ---
REPORT REC'D FROM KIP ÁLVAREZ. PT RESTING COMFORTABLY AT THIS TIME LYING ON LEFT SIDE. O2 IN PLACE. CALL NEVAREZ IN REACH, BED IN LOW POSITION, BED ALARM ACTIVATED, SIDERAILS UP X 3, WHEELS LOCKED
--- NOTE | 2024-01-29 08:00 | NUR ---
54% ON RA PATIENT REMOVED O2. REPLACED O2 AT 2 LPM PER HOME REGIMEN. 89% ON 2 LPM.
[2024-01-29 09:01] VITALS: BP 128/74
[2024-01-29 09:15] VITALS: BP 128/74
--- NOTE | 2024-01-29 09:27 | NUR ---
CALLED [facility] TO CLARIFY O2 ORDER AND THEY REPORTED ORDER IS FOR 2 LPM CONTINUOUS.
[2024-01-29] MEDS ORDERED: LIDOCAINE1 EACH TD (10:03)
[2024-01-29] MEDS ORDERED: OXYCODONE HCL5 MG PO (10:04)
--- NOTE | 2024-01-29 10:11 | NUR ---
PT CALLED NEEDING HELP WITH CELL PHONE. HANDED PT PHONE AND ENSURED A TABLE NEXT TO PT FOR PT TO PUT PHONE ON. PT STATED NEEDED GLASSES. RETRIEVED PT GLASSES FOR PT. PT PERSONAL BELONGINGS AND CALL LIGHT WITHIN REACH. PT STATED NO FURTHER NEEDS AT THIS TIME. PT IS LYING IN BED WATCHING TV AND ON CELL PHONE.
--- NOTE | 2024-01-29 10:55 | NUR ---
CALL TO PARTNER - KATHARINE TO INFORM THAT PATIENT IS BEING DISCHARGED. KATHARINE UNABLE TO GET HER DUE TO HAVING A TRUCK, WILL LET PT SON-BREE KNOW AND HE WILL BE HERE TO [place] HELPER PATIENT. INFORMED DISCHARGE IS COMPLETE AND SHE IS READY TO GO WHEN THEY ARRIVE.
--- NOTE | 2024-01-29 12:00 | NUR ---
Spoke with Gerda. She is more talkative today. Plans on dc and son will pick her up. She states she can get in and out of the car with assist from son. She denies needs. She states she will call Anne-Marie at [facility]. She denies having cg in the home and states she spent 5 months at [place].
[2024-01-29 13:16] VITALS: BP 114/65
--- NOTE | 2024-01-29 14:10 | NUR ---
Updated by Frances Weinstein, she has concern for pt to go home. She wondered if she has anyone who assists her. I updated in the past the pt has given her SO and son as her care providers. I will call 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 I called Anne-Marie Hines at [facility], pt has had caregivers in the home, but decided to [place] ago. Pt had them close out her account.
--- NOTE | 2024-01-29 14:20 | NUR ---
1440: CM CONTACTED REGARDING HOME ASSISTANCE SERVICES. RN RETURN TO ROOM PATIENT SON AT BEDSIDE AND PATIENT INTO W/C VIA DAVID LIFT. PT STRUGGLING TO POSITION SELF IN W/C. RN SPOKE WITH ELECTRONICS MANUFACTURER AGAIN REGARDING CONCERN OF PATIENT MOBILITY AND HOME CARE POST DISCHARGE. RN TO SPEAK WITH WHO IS CALLING ADULT SERVICES TO SPEAK WITH HER LABOR TRAINING MANAGER. RN RETURN, FINDING PATIENT HAS BEEN TAKEN TO THE LOBBY. THIS RN THEN PROCEEDED TO LOBBY TO REVIEW DISCHARGE INSTRUCTIONS AND HAVE SIGNATURE. PT'S O2 TANK DEPLETED OF O2, SECOND TANK FROM [facility] BROUGHT TO PATIENT CAR BY ELECTRONICS MANUFACTURER. PT SON HAS NON-EMERGENT CONTACT NUMBER FOR [facility] TO ASSIST WITH PLACING PATIENT IN HOME ONCE THEY ARRIVE. PT SON ASKED IF PATIENT WOULD BE ABLE TO GO TO SNF FOR SHORT TERM TREATMENT, RN STATED SHE IS NOT ABLE TO GO UNDER THE INSURANCE AT THIS TIME BECAUSE SHE WAS ADMITTED UNDER OBSERVATION STATUS. HE VERBALIZED UNDERSTANDING SON ALSO INFORMED PATIENT PCP IS ABLE TO ORDER HOME HEALTH SERVICES IF HE FEELS IT WOULD BE BENEFICIAL. CM NOTIFIED NURSING PATIENT HAD CANCELLED HER HOME BASED CARE SERVICES A COUPLE OF MONTHS AGO. THEY FEEL WOULD BE BENEFICIAL FOR SHORT TER
== END 2024-01-29 14:01 | disposition home or self-care (01) ==
LOC: ED 17:34 → MS 17:35 → ED 01-28 00:50 → MS 01-28 00:50
PROVIDERS: Emergency Medicine; Internal Medicine; ADMIT Student in an Organized Health Care Education/Training Program; ATTEND Student in an Organized Health Care Education/Training Program
DX: S22.43XA Multiple fractures of ribs, bilateral, initial encounter for closed fracture (principal); W19.XXXA Unspecified fall, initial encounter; J96.11 Chronic respiratory failure with hypoxia; J44.9 Chronic obstructive pulmonary disease, unspecified; I48.91 Unspecified atrial fibrillation; I11.0 Hypertensive heart disease with heart failure; I50.9 Heart failure, unspecified; E78.5 Hyperlipidemia, unspecified; K21.9 Gastro-esophageal reflux disease without esophagitis; E66.01 Morbid (severe) obesity due to excess calories; Z87.891 Personal history of nicotine dependence; Z79.899 Other long term (current) drug therapy; Z88.7 Allergy status to serum and vaccine
CPT/HCPCS: 36415; 70450; 71045; 71260; 80053; 80307; 81003; 82140; 83735; 83880; 84439; 84443; 84484; 85025; 85379; 85610; 85730; 93005; 93010; 94640; 94760; 94762; 96365; 96366; 96375; 96376; 97162; 97166; A9270; G0378; J2060; J2270; J3475; Q9967